=== PATIENT | male | born 1950 | race Caucasian/White ===

== ENCOUNTER 2023-10-26 17:19 | Emergency (ER) | payer MEDICARE, OTHER, SELFPAY ==
[2023-10-26 17:32] VITALS: BP 137/101
[2023-10-26 18:19] LABS: COVID-19 Antigen Negative (Negative)
[2023-10-26 18:27] VITALS: BMI 30.3
[2023-10-26 18:35] VITALS: BP 138/89
--- NOTE | 2023-10-26 20:42 | ED.GENMED ---
History of Present Illness
General
Chief Complaint: Cold/Flu/URI Symptoms
Source: patient
Exam Limitations: none
Time Seen by Provider: 10/26/23 18:36
Nursing documentation reviewed up to this point in time: agreed with
Travel History
Have you had any contact with someone who has COVID-19?: No
Do you have any symptoms of coronavirus? Fever > 100 degrees, chills, cough, shortness of breath, sore throat, loss of taste or smell, muscle aches, or headache?: No
History of Present Illness
History of Present Illness:
73-year-old male with history of A-fib on Eliquis, HTN, HLD, NIDDM presents with 'bad cough.' He feels his lungs are congested, symptoms started 2 days ago, at home with similar symptoms that she has had for 3 weeks. He denies fever or
chills. Denies N/V/D/C. Denies chest pain.
Past History
Past History
ED Past Medical History: Arrthythmia (a FIB), COPD, HTN, Hypercholesterolemia and NIDDM
ED Past Surgical History: Appendectomy and Other (Myxoma removed 2003, Nasal repair age 11)
Social History
Tobacco: Former smoker
Alcohol: Occasional
Personal:
Living: with family
Employment: Employed
Review of Systems
Review of Systems
Allergies reviewed?: Yes
All Other Systems: ROS reviewed and negative except as documented in HPI and ROS
Constitutional: Denies fever or chills
EENT: Denies sore throat
Respiratory: Reports cough; Denies trouble breathing
Cardiac: Denies chest pain
ABD/GI: Denies abdominal pain, nausea, vomiting or diarrhea
Musculoskeletal: Reports no symptoms
Skin: Reports no symptoms
Neurological: Reports no symptoms
Phy Exam
Physical Exam
Physical Exam:
GENERAL: No acute distress. A&Ox3.
CONSTITUTIONAL: Afebrile.
EYES: Clear, conjunctivae normal
ENMT: moist mucus membranes, Pharynx nl
RESPIRATORY: Regular respirations, nonlabored, lungs clear. Occasional coarse junky cough
CARDIOVASCULAR: Regular rate and rhythm, no murmurs, no rubs.
GI: Soft, nontender
MUSCULOSKELETAL: Moves with ease. Well perfused.
SKIN: Warm, dry, pink
PSYCH: Normal mood and affect. Well kept, interactive and appropriate
NEUROLOGIC: Awake, alert and oriented. No focal neurological deficits
Course
Orders/Labs/Results
Orders:
Orders
10/26/23 17:34
ECG [Electrocardiogram (*1)] Urgent
Reason for Study: Chest Pain
10/26/23 17:35
EKG- Treatment ONCE
10/26/23 17:37
COVID-19 Antigen Urgent
Source: Nasal Swab
Influenza A+B Rapid Molecular Urgent
GREGORIA Source: Nasal Swab
Specimen Description:
10/26/23 17:44
Chest [CR Chest - 2 Views ] Urgent
Comment:
Reason For Exam: SOB
10/26/23 20:46
Doxycycline [Vibramycin] 100 mg PO NOW STA
Vital Signs
Initial and Last Documented VS:
Initial Vital Signs
Temp Pulse Resp BP Pulse Ox
98.3 F 93 20 137/101 96
10/26/23 17:32 10/26/23 17:32 10/26/23 17:32 10/26/23 17:32 10/26/23 17:32
Last Documented Vital Signs
Temp Pulse Resp BP Pulse Ox
98.3 F 84 16 153/89 95
10/26/23 17:32 10/26/23 21:05 10/26/23 21:05 10/26/23 21:05 10/26/23 21:05
MDM/Problems Addressed
Differential Diagnosis Includes:
Covid, Flu, PNA, bronchits
MDM/Problems Addressed:
73-year-old male with history of A-fib on Eliquis, HTN, HLD, NIDDM presents with 'bad cough.' He feels his lungs are congested, symptoms started 2 days ago, at home with similar symptoms that she has had for 3 weeks. He denies fever or
chills. Denies N/V/D/C. Denies chest pain.
Afebrile, no hypoxemia, NAD
He has some leftover Augmentin at home and has had a total of 3 doses of 875 mg.
10/26/2023 2044 PM
COVID-negative
Flu negative
Chest x-ray: Radiology for read: Right lower lobe pneumonia.
Prescription for doxycycline sent to patient's pharmacy as well as albuterol inhaler.
Prescription for doxycycline 100 mg twice daily x 10 days sent to his pharmacy.
Pt totally nontoxic appearing, comfortable going home
Copy of EKG and CXR results given to pt.
He has appt tomorrow with his PCP
*Pulse Oximetry
Patient hypoxic: no
*EKG
EKG Intrepretation Date: 10/26/23
Interpretation: abnormal
Comparison EKG: no comparison EKG present
Heart Rate: 84
Rate: normal
Rhythm: sinus
[place]: normal axis
Interval: first degree heart block
QRS Pattern: right bundle branch block (Incomplete)
Ischemia: no ischemia
*Critical Care Note
Total Time (30-74mins, 75-104mins- exclusive of procedures): Not Applicable
ED Attending Note
-
Portions of this chart may have been created with voice recognition software.� Occasional wrong word or��sound alike� substitutions may have occurred due to the inherent limitations of voice recognition software.
Discharge Plan
Departure
Patient Disposition: Home (Routine Discharge)
Date of Disposition: 10/26/23
Time of Disposition: 20:45
Patient with high blood pressure during this ER visit?: No
Condition: Fair
Covid-19: Negative COVID-19
Discharge Problem:
RLL pneumonia
Instructions: Community-Acquired Pneumonia, Adult (DC)
Prescriptions:
New
doxycycline hyclate 100 mg capsule
100 mg PO BID Qty: 19 0RF
albuterol sulfate 90 mcg/actuation HFA aerosol inhaler
2 puff inhalation Q6H PRN (Reason: shortness of breath or wheezing) Qty: 6.7 0RF
No Action
metformin 500 MG tablet
500 mg PO BID
fenofibrate nanocrystallized 145 MG tablet
145 mg PO QPM
omega 4-oft-ejj-fish oil [Fish Oil] 1 EACH capsule
1 ea PO QPM
apixaban [Eliquis] 5 MG tablet
5 mg PO BID
ergocalciferol (vitamin D2) 50 MCG capsule
50 mcg PO QPM
metoprolol succinate 25 MG tablet extended release 24 hr
25 mg PO QPM
Referrals:
Enoch Harley, [Family Provider] - Call in 1-3 days for appt
Activity Restrictions/Additional Instructions:
As we discussed, you have pneumonia. I sent a prescription to your pharmacy for the antibiotic and an albuterol inhaler.
You may take tizy-kxm-mkuudbs cough medicine such as Robitussin, menthol cough drops, drink plenty of fluids
Your COVID and flu tests are negative
Interventions
Interventions:
*Risk Screen - Suicide Last Done: 10/26/23 18:28
*General Assessment Last Done: 10/26/23 18:28
*Neglect/Abuse Screening Last Done: 10/26/23 18:28
ED- Fall Risk Assessment Last Done: 10/26/23 18:28
*ED COVID-19 Vaccine History Last Done: 10/26/23 17:32
*Nursing Disposition Last Done: 10/26/23 21:05
ED- Pulmonary Assessment Last Done: 10/26/23 18:28
Discharge Date and Time
Discharge Date/Time: 10/26/23 21:05
[2023-10-26] MEDS: VIBRAMYCIN 100 MG PO (20:56)
[2023-10-26 21:05] VITALS: BP 153/89
== END 2023-10-26 21:05 | disposition home or self-care (01) ==
LOC: EMR 17:19
PROVIDERS: Emergency Medicine; EMERGENCY PHYSICIAN Emergency Medicine; FAMILY PHYSICIAN Family Medicine
DX: J18.9 Pneumonia, unspecified organism (principal); I10 Essential (primary) hypertension; E78.00 Pure hypercholesterolemia, unspecified; I48.91 Unspecified atrial fibrillation; E11.9 Type 2 diabetes mellitus without complications; Z87.891 Personal history of nicotine dependence; Z11.52 Encounter for screening for COVID-19
CPT/HCPCS: 99285; 71046; 87502; 87811; 93005

== ENCOUNTER 2023-11-07 16:09 | Inpatient (IN) | payer MEDICARE, OTHER, SELFPAY ==
[2023-11-07] VITALS (12 sets, daily range): BP systolic 121–167; BP diastolic 81–105; BMI 29.3
--- NOTE | 2023-11-07 02:44 | ED.GENMED ---
History of Present Illness
General
Chief Complaint: Breathing Problem
Source: patient
Exam Limitations: none
Time Seen by Provider: 11/07/23 02:31
Travel History
Have you had any contact with someone who has COVID-19?: No
Do you have any symptoms of coronavirus? Fever > 100 degrees, chills, cough, shortness of breath, sore throat, loss of taste or smell, muscle aches, or headache?: Yes
Symptoms:: cough
History of Present Illness
History of Present Illness:
This is a 73 year old male that comes in with c/o Pneumonia. State that he was diagnosed here with Pneumonia on Friday the . States that he has done 2 round s antibiotics and 2 rounds of steroids. States that after about 3-4 days they seem to
not work anymore. States that he is SOB with the coughing and going up the steps. States that he has a cough with mucous production. States that he was given Doxycycline first and the Second rounds was Zithromax and Augmentin. States that the
Zithromax ends tomorrow and he is still taking the Augmentin. Patient was also taking a steroid taper at this time. Denies any fever, chills, chest pain, abd pain, nausea, vomiting, diarrhea, headache, dizziness, urinary burning.
Past History
Past History
ED Past Medical History: Arrthythmia (a FIB), COPD, HTN, Hypercholesterolemia, NIDDM and Other (PNA. )
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
Social History
Tobacco: Former smoker
Alcohol: Occasional
Personal:
Living: with family
Employment: Employed
Review of Systems
Review of Systems
All Other Systems: ROS reviewed and negative except as documented in HPI and ROS
Constitutional: Reports no symptoms; Denies fever or chills
EENT: Reports no symptoms
Respiratory: Reports cough and trouble breathing
Cardiac: Reports no symptoms; Denies chest pain
ABD/GI: Reports no symptoms; Denies abdominal pain, nausea, vomiting or diarrhea
: Reports no symptoms; Denies dysuria, frequency or urgency
Musculoskeletal: Reports no symptoms
Skin: Reports no symptoms
Neurological: Reports no symptoms; Denies dizzy or headache
Psychiatric: Reports no symptoms
Phy Exam
General Physical Exam
General Presentation: no apparent distress
General age: appears stated age
General Skin: warm and dry
General Habitus: elderly
General Mental: alert
General Hydration: dry mucous membranes (very slightly dehydrated)
ENT Exam
ENT Exam: TM's normal, pharynx normal and neck supple
Eye Exam
Eye Exam: EOMI
Cardiovascular Exam
Cardiovascular Exam: regular rate/rhythm, no edema and normal peripheral pulses
Pulmonary Exam
Pulmonary Exam: no respiratory distress, chest non tender, no wheezing and other (Bilateral rales at bases, Cough noted with mucous production that patient wrapped in a tissue before seen. )
Gastrointestinal Exam
Gastrointestinal Exam: normal bowel sounds, non tender, soft, no organomegaly, no pulsatile mass and non distended
Musculoskeletal Exam
Musculoskeletal Exam: full ROM and no edema
Skin Exam
Skin Exam: normal color, warm/dry, no petechia and other (Burn on the dorsal aspect of the right foot, Redness noted but negative for any open wounds. Appears improved from prior)
Psychiatric Exam
Psychiatric Exam: normal mood/affect
Scores
Heart Failure Risk
Heart Failure Risk Score: Not Applicable
Course
Orders/Labs/Results
Orders:
Orders
11/07/23 02:43
CR Chest - 2 Views Urgent
Comment:
Reason For Exam: cough, SOB
11/07/23 02:55
Electrocardiogram (*1) Urgent
Reason for Study: Shortness of Breath
EKG- Treatment ONCE
11/07/23 03:15
Complete Blood Count/With Diff Urgent
Comprehensive Metabolic Panel Urgent
Lactic Acid Urgent
Blood Culture Q30M
GREGORIA Source: Blood/Venous
Specimen Description:
Blood Culture Q30M
GREGORIA Source: Blood/Venous
Specimen Description:
11/07/23 03:29
CT Chest Pe Study Urgent
Comment:
Reason For Exam: SOB, Cough
11/07/23 03:39
0.9% Sodium Chloride 1000 ml [Nss] 1,000 ml IV BOLUS
11/07/23 04:39
Admit/Transfer Patient As Directed
Co-Sign Provider:
Level of Care: Observation services
Assign to:: Telemetry
Physician / Group: [email or web address]
Diagnosis: Dyspnea , HX COPD
Reason for Telemetry: Arrhythmia
Date to Stop Telemetry: 11/10/23
Time to Stop Telemetry: 11:00
11/07/23 04:48
NT-proBNP IN AM
Procalcitonin Routine
PCT Algorithmm Indication: Respiratory
11/07/23 04:50
Code Status As Directed
Resuscitation Status: Full Code
11/07/23 Breakfast
Cholesterol Lowering
At Your Request: Full Participation
Cholesterol Lowering: Sodium, 2 Gram
1800 jony/15 CHO Diabetic
11/07/23 07:16
Dextrose 50%-Water [Dextrose 50% Syringe] 12.5 grams IV [id number] PRN
Glucagon [GlucaGen] 1 mg IM PRN PRN
Ipratropium/Albuterol Sulfate [Duoneb] 3 ml INH R Q4HPRN PRN
11/07/23 07:16
Consult Notification Routine
Specialty to Notify: Pulmonary
Date consulting provider notified: 11/07/23
Time consulting provider notified: 07:20
Notified:: Provider
Comment: TT 7:20
Consult Pulmonary [PULMONARY CONSULT] Routine
Consulting Provider: Yair Gar
Was physician already notified: No
Reason for consult: Dyspnea dspite PO steroids+ PO ABx, HX COPD , recent PNA
Activity As Directed
Activity Level: With Assistance
Bedside Glucose Monitoring As Directed
Frequency: AC&HS
Comment: Change to q6h if pt on TPN, tube feeding or not eating
Intake/ Output As Directed
Frequency: Per unit guidelines
Vital Signs As Directed
Frequency: Per unit guidelines
Pulse Ox/spot Check [RESP] Routine
Quantity: 1
DX Deep Vein Thrombosis Video Routine
11/07/23 07:30
Insulin Aspart Corrective Low [Novolog Flexpen-Low Resistance] See Protocol SC AC
11/07/23 07:56
Lactic Acid Urgent
11/07/23 08:00
Apixaban [Eliquis] 5 mg PO BID
Dapagliflozin [Farxiga] 5 mg PO DAILY
Doxycycline [Vibramycin] 100 mg PO BID
Ipratropium/Albuterol Sulfate [Duoneb] 3 ml INH R QID
Prednisone [Deltasone] 40 mg PO DAILY
11/07/23 12:44
0.9% Sodium Chloride [Nss (Preservative Free)] 10 ml IV DAILY
11/07/23 13:00
Pantoprazole [Protonix IV] 40 mg IV DAILY
11/07/23 15:41
HydrALAZINE [Apresoline] 10 mg IV Q6HPRN PRN
11/07/23 18:00
Dexamethasone Sod Phosphate [Decadron] 4 mg IV Q8H
Enoxaparin Sodium [Lovenox] 40 mg SC QPM
Fenofibrate 145 [Tricor] 145 mg PO QPM
Metoprolol Xl [Toprol Xl] 25 mg PO QPM
11/08/23 08:25
Basic Metabolic Panel IN AM
Complete Blood Count/No Diff IN AM
Glycohemoglobin (HgbA1c) IN AM
11/10/23 11:00
DC Protocol for Telemetry ONCE
Abnormal Lab Results
11/07/23 11/07/23 11/07/23
03:15 07:44 12:01
WBC 12.2 H 10^3/uL
(4.8-10.8)
MCH 31.5 H pg
(27.0-31.0)
Abs Immat Gran (auto) 0.2 H 10^3/uL
(0-0.05)
Absolute Neuts (auto) 7.0 H 10^3/uL
(1.4-6.5)
Absolute Lymphs (auto) 4.1 H 10^3/uL
(1.2-3.4)
Absolute Monos (auto) 0.8 H 10^3/uL
(0.1-0.6)
Immature Gran % 1.6 H %
(0-0.5)
BUN 28 H mg/dl
(9-20)
Glucose 180 H mg/dl
(70-99)
Lactic Acid 2.3 H mmol/L
(0.7-2.0)
Calcium 10.3 H mg/dl
(8.4-10.2)
POC Glucose 163 H mg/dl 210 H mg/dl
(70-99) (70-99)
11/07/23 03:15
11/07/23 03:15
Leukocytosis, Dehydration. Glucose nonfasting. Lactic acid elevated to 2.3,
Vital Signs
Initial and Last Documented VS:
Initial Vital Signs
Temp Pulse Resp BP Pulse Ox
97.7 F 93 28 167/105 93
11/07/23 02:01 11/07/23 02:01 11/07/23 02:01 11/07/23 02:01 11/07/23 02:01
Last Documented Vital Signs
Temp Pulse Resp BP Pulse Ox
98.1 F 126 16 146/99 94
11/08/23 15:00 11/08/23 17:00 11/08/23 15:17 11/08/23 17:00 11/08/23 15:17
MDM/Problems Addressed
Differential Diagnosis Includes:
PNA, Atelectasis, CHF
MDM/Problems Addressed:
This is a 73 year old male that comes in with c/o cough and SOB. States that he has been through almost 2 rounds or antibiotics and 2 rounds of steroids. States that for the past 3-4 days there seems to be improvement and then he is back right were
he started. States that he is SOB with the coughing and going up the step.
Will get labs, Chest x-ray
Back into see patient. Explained that his chest x-ray looks improved from the prior where he was diagnosed with Pneumonia. Got patient OOB and ambulated him around the nursing station. Pulse ox remained at 93% and patient heart rate when he got back
into bed was only 83. Patient will get CT can to r/o any PE or hidden Pneumonia that is not seen on X-ray.
Back into see patient. Will bring patient into the hospital as SOB with exertion. Patient also has a slight elevation of his Lactic acid. Will give IV fluids. CT is pending. Hospitalist notified.
Chronic conditions affecting care: COPD and Other (History of PNA)
Acute Exacerbation and/or Progression of Chronic Illness: Other (History of PNA)
*Radiology
Radiology exam reviewed: radiology read reviewed (Chest CT-No evidence of central pulmonary embolism. Pattern suggesting some centrilobular emphysema. Approximate 1.9cm nodular opacity in the left lower lobe. Although this may represent some focal
atelectasis or inflammation/infectious process, unfortunately, malignancy cannot be entirely excluded.) and other (CT cont- referral made to the pulmonary nodule advisory board. Chest- No acute cardiopulmonary process)
*Pulse Oximetry
Patient hypoxic: no
*EKG
Interpreted by ED Provider?: Yes
Heart Rate: 84
Rate: normal
Rhythm: sinus
[place]: normal axis
Interval: first degree heart block
QRS Pattern: right bundle branch block (Incomplete)
Ischemia: no ischemia
*House Steward/Stewardess Interpretation
Rate: normal
Heart Rate: 84
Rhythm: sinus
*Critical Care Note
Total Time (30-74mins, 75-104mins- exclusive of procedures): Not Applicable
ED Attending Note
-
Portions of this chart may have been created with voice recognition software.� Occasional wrong word or��sound alike� substitutions may have occurred due to the inherent limitations of voice recognition software.
Discharge Plan
Departure
Patient Disposition: Admit
Date of Disposition: 11/07/23
Time of Disposition: 04:15
Admit to: Med/Surg
Presentation/result/management discussed w/ accepting MD/DO: Hospitalist
Patient with high blood pressure during this ER visit?: Yes
Condition: Good
Covid-19: Not Applicable
Discharge Problem:
FLORES (dyspnea on exertion), Cough in adult
Interventions
Interventions:
*Risk Screen - Suicide Last Done: 11/07/23 02:01
*General Assessment Last Done: 11/07/23 02:01
*Neglect/Abuse Screening Last Done: 11/07/23 02:01
ED- Fall Risk Assessment Last Done: 11/07/23 02:01
*ED COVID-19 Vaccine History Last Done: 11/07/23 02:01
*Nursing Disposition Last Done: 11/07/23 07:21
ED- Cardiac Assessment Last Done: 11/07/23 04:30
ED- Pulmonary Assessment Last Done: 11/07/23 04:28
Discharge Date and Time
Discharge Date/Time: 11/07/23 07:21
[2023-11-07 03:29] LABS: % Basophils 0.7 % (0-2); % Eosinophils 1.3 % (0-6); % Immature Granulocytes 1.6 % (0-0.5); % Lymphocytes 33.4 % (20.5-51.1); % Monocytes 6.3 % (1.7-9.3); % Neutrophils 56.7 % (42.2-75.2); Absolute Basophils 0.1 10^3/uL (0-0.2); Absolute Eosinophils 0.2 10^3/uL (0-0.7); Absolute Immature Granulocytes 0.2 10^3/uL (0-0.05); Absolute Lymphocytes 4.1 10^3/uL (1.2-3.4); Absolute Monocytes 0.8 10^3/uL (0.1-0.6); Hematocrit 44.2 % (39.0-52.0); Hemoglobin 16.2 g/dL (13.0-18.0); Mean Corp Hgb Conc. 36.7 g/dL (33.0-37.0); Mean Corpuscular Hgb 31.5 pg (27.0-31.0); Mean Corpuscular Volume 85.8 fL (80.0-94.0); Mean Platelet Volume 9.7 fL (7.4-10.4); Nucleated Red Blood Cells % 0 % (-); Platelet Count 285 10^3/uL (130-400); Red Blood Cell Count 5.15 10^6/uL (4.70-6.10); Red Cell Dist. Width 12.1 % (11.5-14.5); White Blood Cell Count 12.2 10^3/uL (4.8-10.8)
[2023-11-07 03:37] LABS: Lactic Acid 2.3 mmol/L (0.7-2.0)
[2023-11-07 03:48] LABS: ALT (SGPT) 35 U/L (0-50); AST (SGOT) 29 U/L (17-59); Alkaline Phosphatase 85 U/L (38-126); Blood Urea Nitrogen 28 mg/dl (9-20); Calcium 10.3 mg/dl (8.4-10.2); Carbon Dioxide 23 mmol/L (22-30); Chloride 101 mmol/L (98-107); Glucose 180 mg/dl (70-99); Sodium 136 mmol/L (135-145); Total Bilirubin 0.6 mg/dl (0.2-1.3); Total Protein 6.7 g/dl (6.3-8.2); eGFR > 60.00
--- NOTE | 2023-11-07 04:35 | HPS.HSE ---
Addendum entered and electronically signed by Bob Deutsch MD 11/07/23 13:30:
Final CXR report : no acute process
Addendum entered and electronically signed by Bob Deutsch MD 11/07/23 05:19:
CTA chest with IV contrast
- No pulmonary embolus. Examination degraded by moderate motion artifact and streak artifact of the contrast bolus. Adequate bolus timing.
- No thoracic aneurysm or dissection.
- Peripheral 1.9 x 1.8 cm nodular opacity in the left lower lobe. Cannot exclude a mass. Alternatively, this may represent a small infection or atelectasis.
May consider biopsy or follow-up chest CT in 3 months.
- Right lower lobe dependent groundglass opacities. Moderate centrilobular emphysema.
- Mediastinal and cardiac structures are unremarkable. Visualized portions of the upper abdomen are unremarkable.
Plan
- await Pul evaluation
- await procalcitonin and pro BNP
Original Note:
Family Physician
-
Family Physician: Enoch Harley
Chief Complaint
-
Sob , cough
History of Present Illness
73M HX COPD, NIDDM , recently was diagnosed Rt LLL PNA (10/29/22 CXR) treated with 2 round s antibiotics and 2 rounds of steroids. Despite ABx and steroids noted SOB with the coughing and going up the steps. Recent HX ABx include Doxycycline
first and the Second rounds was Zithromax and Augmentin. Zithromax ends tomorrow and he is still taking the Augmentin. Currently on tapering dose of steroid.
ROS:
POS cough with mucous production.
Denies any fever, chills, chest pain, abd pain, nausea, vomiting, diarrhea, headache, dizziness, urinary burning.
Medical History
Past Medical History
Past Medical History: Reports Other
Additional Past Medical History:
Arrthythmia (a FIB), COPD, HTN, Hypercholesterolemia, NIDDM and Other (PNA. )
Past Surgical History: Reports Other
Additional Past Surgical History:
Appendectomy and Other (Myxoma removed from Heart Open heart surgery 2004, Nasal repair age 11
Social History
Tobacco: Former Smoker
Alcohol: Occasional
Personal:
Living: With Family
Family History
Family History: Not pertinent
Allergies / Home Medications
Allergies reflects when Allergies were last updated in [email or web address].
Home Medications with original date entered in [email or web address]
Allergy/Medication List:
Allergies
Allergy/AdvReac Type Severity Reaction Status Date / Time
bee venom protein (honey bee) Allergy Severe TACHYCARDIA Verified 11/07/23 02:00
oxycodone [From Percocet] Allergy Mild 'LOOPY' Verified 11/07/23 02:00
ezetimibe [From Zetia] Allergy Pharmacy Verified 11/07/23 02:00
to Review
[id number]-[id number] Reductase Allergy myalgias Verified 11/07/23 02:00
Inhibitor
Home Medications
apixaban 5 mg tablet (Eliquis) 5 mg PO BID 01/14/22
ergocalciferol (vitamin D2) 50 mcg (2,000 unit) capsule 50 mcg PO QPM 01/14/22
fenofibrate nanocrystallized 145 mg tablet 145 mg PO QPM 01/14/22
metformin 500 mg tablet 500 mg PO BID 01/14/22
metoprolol succinate 25 mg tablet,extended release 24 hr 25 mg PO QPM 01/14/22
omega 3-odj-gvu-fish oil 300 mg-1,000 mg capsule (Fish Oil) 1 ea PO QPM 01/14/22
albuterol sulfate 90 mcg/actuation aerosol inhaler 2 puff inhalation Q6H PRN shortness of breath or wheezing #6.7 grams 10/26/23
doxycycline hyclate 100 mg capsule 100 mg PO BID #19 caps 10/26/23
Farxiga 5 mg PO DAILY 11/07/23
amoxicillin 875 mg PO BID 11/07/23
prednisone 40 mg PO DAILY 11/07/23
Review of Systems
-
Constitutional: Reports No Symptoms
EENT: Reports No Symptoms
Respiratory: Reports See HPI
Cardiac: Reports No Symptoms
Abdomen/GI: Reports No Symptoms
: Reports No Symptoms
Musculoskeletal: Reports No Symptoms
Skin: Reports No Symptoms
Neurological: Reports No Symptoms
Endocrine: Reports No Symptoms
Hematologic/Lymphatic: Reports No Symptoms
Psych: Reports No Symptoms
Physical Exam
Vital Signs
Vital Signs
Temp Pulse Resp BP Pulse Ox
97.7 F 93 28 167/105 94
11/07/23 02:01 11/07/23 02:01 11/07/23 02:01 11/07/23 02:01 11/07/23 04:28
Physical Exam
General: Other (see below )
Laboratory Results
-
11/07/23 03:15
11/07/23 03:15
Laboratory Results
Lactic Acid 2.3 mmol/L (0.7-2.0) H 11/07/23 03:15
Total Bilirubin 0.6 mg/dl (0.2-1.3) 11/07/23 03:15
AST 29 U/L (17-59) 11/07/23 03:15
ALT 35 U/L (0-50) 11/07/23 03:15
Alkaline Phosphatase 85 U/L (38-126) 11/07/23 03:15
Data Reviewed
-
CT Scan: Other (pending report )
Lab Data: Labs Reviewed by me
Old Records: Reviewed
Impression/Plan
-
Reviewed VS: Afebrile.Tachpnic @20-28. POx 93 on RA. BP 165/105
PE
Gen: NAD
HEENT: anicteric
Neck: supple
Lungs: cough with deep breathing, symmetric AE
Cor: RRR S1 S2
Abdomen: soft benign
ENTERTAINMENT PRODUCTION PROFESSIONAL: AAO3 NFND
MS: no edema
Psych: normal mood/affect
Data
WCC 12.2 on Prednisone
BUN 28
nl Cr nl GFR
BG 180 on prednisone
LA 2.3
Ca 10.3 Alb 4.0
nl LFts
EKG
SINUS RHYTHM WITH 1ST DEGREE A-V BLOCK
INCOMPLETE RIGHT BUNDLE BRANCH BLOCK
BORDERLINE ECG
WHEN COMPARED WITH ECG OF 26-OCT-2023 17:41,
NONSPECIFIC T WAVE ABNORMALITY NO LONGER EVIDENT IN INFERIOR LEADS
BCx sent
10/26/23 CXR
1. Multiple bands of opacity in the right lower lobe which appear new from 09/15/2023 suggesting RIGHT LOWER LOBE PNEUMONIA. Subsegmental atelectasis is an alternative diagnostic possibility.
2. Previous cardiac myxoma resection.
11/06/23 CXR - my view is no obvious PNA , not in CHF
Pending CT chest report
ASSESSMENT & PLAN
No prior hospitalist admission
Pending Rx reconciliation
Webb and productive cough
HX COPD
Rt LLL PNA per 10/26/23 CXR - no obvious PNA on my view on current admission CXR
Clinically not volume overload
- f/u CTC report
- cont PO Doxy
- cont PO Prednisone 40mg daily
- Nebs qid and PRN
- check procalcitonin and proBNP
- Pul consult
In NSR for known HX Prx AF
- cont Eliquis and Metoprolol succinate
Mild systolic HTN noted
Essential HTN
- cont Metoprolol succinate
Hypercholesterolemia
- await Rx reconciliation
NIDDM
- Held Metformin
- add ISS low
DVT Px: LMWH
Code: Full
Obs TLM
[2023-11-07] MEDS: NSS 1000 IV (04:39)
[2023-11-07 05:34] LABS: NT-proBNP 291 pg/ml
[2023-11-07 05:46] LABS: Procalcitonin 0.06 ng/ml (0.0-0.25)
[2023-11-07] MEDS: DUONEB 3 ML INH ×4 (07:22→20:21)
--- NOTE | 2023-11-07 07:40 | PTCARENOTE ---
Rec'd Pt from ED to room 417-2, [address]. Pt is AOOX3, oriented to room with call herbert in place.
[2023-11-07 07:45] LABS: Glucose - Point of Care 163 mg/dl (70-99)
--- NOTE | 2023-11-07 08:29 | CON.PUL ---
Consultation
Consultation Request
Date/Time Consultation Requested: 11/07/2023
Date/Time Consultation Performed: 11/07/2023
Reason for Consultation: Shortness of breath
Medical History
-
History of Present Illness:
History obtained from the chart and from reviewing case with the patient. Patient is a 73-year-old male with history of COPD who was recently discharged from [facility] 10/26/2023 treated for right lower lobe pneumonia. He was seen in the
ED, not hospitalized. He states his symptoms started about 10 days ago. His primary consisted of upper respiratory symptoms. He denies any hemoptysis. He apparently has had recurrent bronchitis, a similar episode about 3 weeks prior. In the ED
at that time, he was given doxycycline, of note no wheezing noted on exam. Chest x-ray suggested right lower lobe pneumonia. He followed up with his primary thereafter and was placed on a different antibiotic and steroid with 40 mg due to
persistent symptoms. Because of persistent symptoms, he brought himself to [facility] where he was found to be afebrile, pulse 93, breathing at 28, blood pressure 167/105, 93%. Chest x-ray suggested improvement in right lower lobe
pneumonia but patient desaturated to 83% in the ED with simple ambulation. He had mild elevated lactic acid. Per ED records there was no wheezing but he did have crackles. We are asked to comment on his pulmonary process
Presently he is feeling mildly improved but does have productive cough, coughing up 6 teaspoons of yellow mucus, no blood. He is conversant, no use of accessory muscles
.
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 History of right bundle branch block, appendectomy 1980
Past Medical History
Past Medical History: None (See HPI)
Past Surgical History: None (See HPI)
Social History
Tobacco: Former Smoker (Likely 40+ pack year, up to 2 packs a day, quit )
Alcohol: Occasional
Drug: None
Personal:
Living: With Family
Employment: Retired (Denies occupational exposure)
Family History
Family History: Other (Mother from stroke 87, father in his 90s. Family history negative for blood clots)
Allergies / Home Medications
Allergies
Allergy/AdvReac Type Severity Reaction Status Date / Time
bee venom protein (honey bee) Allergy Severe TACHYCARDIA Verified 11/07/23 02:00
oxycodone [From Percocet] Allergy Mild 'LOOPY' Verified 11/07/23 02:00
ezetimibe [From Zetia] Allergy Pharmacy Verified 11/07/23 02:00
to Review
Hbevtfe-OWD-OjB Reductase Allergy myalgias Verified 11/07/23 02:00
Inhibitor
Home Medications
Medication Instructions Recorded Confirmed Last Taken Type
apixaban 5 mg tablet (Eliquis) 5 mg PO BID 01/14/22 11/07/23 11/06/23 History
ergocalciferol (vitamin D2) 50 mcg 50 mcg PO QPM 01/14/22 11/07/23 11/06/23 History
(2,000 unit) capsule
fenofibrate nanocrystallized 145 145 mg PO QPM 01/14/22 11/07/23 11/06/23 History
mg tablet
metformin 500 mg tablet 500 mg PO BID 01/14/22 11/07/23 11/06/23 History
metoprolol succinate 25 mg 25 mg PO QPM 01/14/22 11/07/23 11/06/23 History
tablet,extended release 24 hr
omega 1-wle-nsv-fish oil 300 1 ea PO QPM 01/14/22 11/07/23 11/06/23 History
mg-1,000 mg capsule (Fish Oil)
albuterol sulfate 90 mcg/actuation 2 puff inhalation Q6H PRN 10/26/23 11/07/23 Unknown Rx
aerosol inhaler shortness of breath or wheezing
#6.7 grams
doxycycline hyclate 100 mg capsule 100 mg PO BID #19 caps 10/26/23 11/07/23 Unknown Rx
Farxiga 5 mg PO DAILY 11/07/23 11/07/23 11/06/23 History
amoxicillin 875 mg PO BID 11/07/23 11/07/23 11/06/23 History
prednisone 40 mg PO DAILY 11/07/23 11/07/23 11/06/23 History
Review of Systems
-
All other systems: Negative unless noted
Vitals / Labs / Diagnostic Testing
Vital Signs
Temp Pulse Resp BP Pulse Ox
97.7 F 63 18 121/83 95
11/07/23 02:01 11/07/23 07:27 11/07/23 07:27 11/07/23 06:00 11/07/23 07:27
Lab Data
11/07/23 03:15
11/07/23 03:15
Diagnostic Testing:
Physical Exam
-
HEENT: Normocephalic and Anicteric
Cardiovascular: S1/S2, Regular Rhythm, Murmur (n), Rub (n), Peripheral Edema (tr) and Calf Tenderness (n)
Respiratory: Wheeze (Diffuse), Rales (n), Rhonchi (n) and Non-Labored Respirations
GI: Soft, Non Distended (Obese) and Non Tender
Neurology: Awake, Alert and No Motor Deficits
Skin: Other (No clubbing, cyanosis)
General: Comfortable (Conversant)
Assessment
-
73-year-old male with history of hypertension, hyperlipidemia, atrial fibrillation on anticoagulation, diabetes presents with 8 to 10 days of upper respiratory symptoms status post doxycycline, steroids and second antibiotic with persistent
symptoms. Found to have significant wheezing on my exam. CT imaging negative for PE, improvement in right lower lobe process. There is a left lower lobe nodule. We are asked to comment on pulmonary process
Acute COPD exacerbation
Diffuse wheezing on exam
Failed outpatient therapy with antibiotic x 2, prednisone
Recent right lower lobe pneumonia, status post 2 courses of antibiotics
Improved radiographically
1.8 cm left lower lobe nodule
not present on abdominal CT imaging 02/06/2023
40+ pack years to smoking
2 packs a day, quit
Conditions present prior to admission
Hypertension/hyperlipidemia
Diabetes
History of right bundle branch block
Atrial fibrillation on Eliquis
History of atrial myxoma
Cardiac surgery 2003, details unclear
Suspected sleep apnea
Negative PSG per patient
Plan/recommendations
At this time, salient features include diffuse wheezing on exam. Prior ED records suggest no evidence of wheezing
It appears his prior right lower lobe process has improved
Doubt active infection, procalcitonin normal
Doubt component of heart failure, normal BNP, weight down few pounds over the last week
Moving forward
Continue with treatment for acute COPD exacerbation
With transition to IV steroids, Decadron. Patient has failed outpatient prednisone
Ramp-up nebulized therapy, continue DuoNebs 4 times a day
Patient with significant productive cough, 6 teaspoons of thick mucus, visualized at bedside
Add budesonide twice daily
GERD therapy will be added while on steroids
Follow blood sugars
Less likely thromboembolic process given chronic anticoagulation
Reviewed with patient at length left lower lobe nodule. This was not present on abdominal imaging February 2023
Rapid growth versus infectious process
He will require follow-up CT chest in the next 4 weeks. We will facilitate this
DVT prophylaxis: On Eliquis
Reviewed with patient at length. All questions answered
We will follow
--- NOTE | 2023-11-07 08:42 | W.PN.HOSP.TC ---
Addendum entered and electronically signed by Hakeem Horne MD 11/07/23 16:09:
Due to patient persistent and severity COPD exacerbation as well as failed outpatient treatment, his medications have been switched to intravenous steroids and he will require minimum of 2 midnights and he needs to be carried to hospital for further
care and monitor for any worsening respiratory failure or progress.
Original Note:
Today's Communication/Plan
-
IV steroids, bronchodilators.
Assessment / Plan
Assessment / Plan
Physical exam:
General: Well Developed, Well Nourished and No Apparent Distress
HEENT: Normocephalic, Atraumatic and Moist Mucous Membranes
Respiratory: Clear to Auscultation; Negative Wheezes, Rales or Rhonchi
Cardiac: Regular Rhythm and S1/S2
GI: Soft, Nontender and Nondistended
Musculoskeletal: No Clubbing, No Cyanosis and No Edema
Neuro: Awake, Alert and Oriented
Psych: Calm
A/P:
COPD exacerbation:
-Change oral steroids to IV steroids today
-Continue bronchodilators but increased.
-On oral doxycycline
-Seen and reviewed CT of the chest and no PE, but evidence of centrilobular emphysema and 1.9 cm opacity left lower lobe.
-Pulmonary consult appreciated
Lung mass:
-Pulmonary consult
-Follow-up as outpatient--> will need follow-up images as outpatient.
Paroxysmal atrial fibrillation:
-Continue rate control, Metoprolol succinate 25 mg p.o. nightly
-Continue anticoagulation, Eliquis 5 mg p.o. twice a day
-Continue cardiac monitoring
Hypertension:
-Continue current antihypertensive
-Monitor and adjust blood pressure medications accordingly
Diabetes mellitus type 2:
-Continue Farxiga
-Continue insulin sliding scale
-Monitor blood sugar and adjust medications accordingly
DVT prophylaxis:
-On Eliquis
-Discontinue Lovenox
CODE STATUS:
-Full code
Anticipated Discharge: > 48 hours
Subjective/Interval History
-
Date of Service: November 07, 2023
Patient still short of breath and cough. No chest pain. Afebrile
Objective Data
-
Labs:
Laboratory Results
11/07/23
03:15
WBC 12.2 H
Hgb 16.2
Hct 44.2
Plt Count 285
Sodium 136
Potassium 4.0
Chloride 101
Carbon Dioxide 23
BUN 28 H
Creatinine 0.8
Glucose 180 H
Calcium 10.3 H
Total Bilirubin 0.6
AST 29
ALT 35
Alkaline Phosphatase 85
Vital Signs:
Vital Signs
Temp Pulse Resp BP Pulse Ox
97.9 F 84 18 150/81 94
11/07/23 07:30 11/07/23 07:30 11/07/23 07:30 11/07/23 07:30 11/07/23 07:30
[2023-11-07] MEDS: NOVOLOG FLEXPEN-LOW RESISTANCE 1 UNITS SC (09:40)
[2023-11-07] MEDS: ELIQUIS 5 MG PO ×2 (09:40→19:56)
[2023-11-07] MEDS: VIBRAMYCIN 100 MG PO ×2 (09:40→19:57)
[2023-11-07] MEDS: FARXIGA 5 MG PO (09:41)
[2023-11-07] MEDS: DELTASONE 40 MG PO (09:41)
--- NOTE | 2023-11-07 11:05 | CM ---
Patient seen bedside, initial assessment completed. Patient reports he lives with his in a multiple story home, denies DME, VN, or SNF. Patient confirms PCP Dr. Harley, pharmacy [facility]. ROGERS form reviewed, signed, placed in patients
chart. CM will continue to follow for discharge planning needs.
Plan; home, will follow for anticipated needs.
[2023-11-07] MEDS: NOVOLOG FLEXPEN-LOW RESISTANCE SC (11:52)
[2023-11-07 12:01] LABS: Glucose - Point of Care 210 mg/dl (70-99)
[2023-11-07] MEDS: NOVOLOG FLEXPEN-LOW RESISTANCE 2 UNITS SC ×2 (12:47→17:25)
[2023-11-07] MEDS: NSS (PRESERVATIVE FREE) 10 ML IV (12:47)
[2023-11-07] MEDS: PROTONIX IV 40 MG IV (12:48)
[2023-11-07 17:16] LABS: Glucose - Point of Care 211 mg/dl (70-99)
[2023-11-07] MEDS: DECADRON 4 MG IV (17:24)
[2023-11-07] MEDS: TOPROL XL 25 MG PO (17:25)
[2023-11-07] MEDS: TRICOR 145 MG PO (17:26)
[2023-11-07] MEDS: APRESOLINE 10 MG IV (17:26)
--- NOTE | 2023-11-07 18:32 | PTCARENOTE ---
Pt BP elevated @ 144/100 HR 107. No PRN's ordered. TT to DR. Horne- N/O rec'd for PRN Hydralazine (for SBP>160/DBP>100). Given to Pt. BP dropped just 1 point to 144/99, HR 104. Will re-check @ 1900 vitals and pass along to HS RN.
[2023-11-07 23:42] LABS: Glucose - Point of Care 195 mg/dl (70-99)
[2023-11-08] MEDS: DECADRON 4 MG IV ×3 (01:56→17:00)
[2023-11-08 03:15] VITALS: BP 136/98
[2023-11-08 07:00] VITALS: BP 134/90
[2023-11-08] MEDS: DUONEB 3 ML INH ×4 (07:24→19:42)
[2023-11-08 07:50] LABS: Glucose - Point of Care 206 mg/dl (70-99)
[2023-11-08] MEDS: NOVOLOG FLEXPEN-LOW RESISTANCE 2 UNITS SC ×2 (07:53→11:48)
[2023-11-08] MEDS: NSS (PRESERVATIVE FREE) 10 ML IV (07:53)
[2023-11-08] MEDS: ELIQUIS 5 MG PO ×2 (07:53→19:34)
[2023-11-08] MEDS: VIBRAMYCIN 100 MG PO ×2 (07:53→19:34)
[2023-11-08] MEDS: PROTONIX IV 40 MG IV (07:53)
[2023-11-08] MEDS: FARXIGA 5 MG PO (07:53)
--- NOTE | 2023-11-08 07:55 | W.PN.HOSP.TC ---
Today's Communication/Plan
-
Continue IV steroids, bronchodilators.
Assessment / Plan
Assessment / Plan
Physical exam:
General: Well Developed, Well Nourished and No Apparent Distress
HEENT: Normocephalic, Atraumatic and Moist Mucous Membranes
Respiratory: Clear to Auscultation; Negative Wheezes, Rales or Rhonchi
Cardiac: Regular Rhythm and S1/S2
GI: Soft, Nontender and Nondistended
Musculoskeletal: No Clubbing, No Cyanosis and No Edema
Neuro: Awake, Alert and Oriented
Psych: Calm
A/P:
COPD exacerbation:
-Change oral steroids to IV steroids yesterday and cont the same today
-Continue bronchodilators but increased yesterday.
-On oral doxycycline
-Seen and reviewed CT of the chest and no PE, but evidence of centrilobular emphysema and 1.9 cm opacity left lower lobe.
-Pulmonary consult appreciated
-Updated over the phone today
Lung mass:
-Pulmonary consult appreciated
- tells me that he has had low-dose CT scan screening as outpatient about 5 times but she does recall anything major although she was told 1 nodule that was probably benign. Regardless, at this point will need to follow-up closely with his 2 cm
nodule after this hospitalization.
-Follow-up as outpatient--> will need follow-up images as outpatient.
Paroxysmal atrial fibrillation:
-Continue rate control, Metoprolol succinate 25 mg p.o. nightly
-Continue anticoagulation, Eliquis 5 mg p.o. twice a day
-Continue cardiac monitoring
Hypertension:
-Continue current antihypertensive
-Monitor and adjust blood pressure medications accordingly
Diabetes mellitus type 2:
-Continue Farxiga
-Continue insulin sliding scale
-Monitor blood sugar and adjust medications accordingly
DVT prophylaxis:
-On Eliquis
-Discontinue Lovenox
CODE STATUS:
-Full code
Anticipated Discharge: > 48 hours
Subjective/Interval History
-
Date of Service: November 08, 2023
Patient feels better today, less shortness of breath and cough. No chest pain. Afebrile
Objective Data
-
Labs:
Laboratory Results
11/08/23
06:00
WBC Pending
Hgb Pending
Hct Pending
Plt Count Pending
Sodium Pending
Potassium Pending
Chloride Pending
Carbon Dioxide Pending
BUN Pending
Creatinine Pending
Glucose Pending
Calcium Pending
Vital Signs:
Vital Signs
Temp Pulse Resp BP Pulse Ox
97.4 F 89 16 136/98 95
11/08/23 03:15 11/08/23 07:26 11/08/23 07:26 11/08/23 03:15 11/08/23 07:26
I&O
11/07/23 11/08/23 11/09/23
06:59 06:59 06:59
Intake Total 1200 / 1200
Balance 1200 / 1200
Review of Systems
-
All other systems: Reviewed and negative
[2023-11-08 09:08] LABS: Hematocrit 46.9 % (39.0-52.0); Hemoglobin 16.6 g/dL (13.0-18.0); Mean Corp Hgb Conc. 35.4 g/dL (33.0-37.0); Mean Corpuscular Hgb 31.6 pg (27.0-31.0); Mean Corpuscular Volume 89.2 fL (80.0-94.0); Mean Platelet Volume 10.1 fL (7.4-10.4); Platelet Count 281 10^3/uL (130-400); Red Blood Cell Count 5.26 10^6/uL (4.70-6.10); Red Cell Dist. Width 12.3 % (11.5-14.5)
[2023-11-08 09:15] VITALS: BP 134/90
[2023-11-08 09:26] LABS: Blood Urea Nitrogen 20 mg/dl (9-20); Calcium 9.6 mg/dl (8.4-10.2); Carbon Dioxide 20 mmol/L (22-30); Chloride 100 mmol/L (98-107); Estimated Creatinine Clearance 102 ml/min; Glucose 284 mg/dl (70-99); Potassium 4.3 mmol/L (3.5-5.1); Sodium 133 mmol/L (135-145); eGFR > 60.00
[2023-11-08 11:03] LABS: Glycohemoglobin (HgbA1c) 8.9 % (4.0-5.6)
[2023-11-08 11:47] LABS: Glucose - Point of Care 235 mg/dl (70-99)
[2023-11-08 15:00] VITALS: BP 149/84
--- NOTE | 2023-11-08 16:37 | W.PN.PUL3 ---
Today's Communication / Plan
-
Bronchodilators
Corticosteroids
Oral antibiotic
Chronic anticoagulation
Assessment
-
73-year-old male with history of hypertension, hyperlipidemia, atrial fibrillation on anticoagulation, diabetes presents with 8 to 10 days of upper respiratory symptoms status post doxycycline, steroids and second antibiotic with persistent
symptoms. Found to have significant wheezing on my exam. CT imaging negative for PE, improvement in right lower lobe process. There is a left lower lobe nodule. We are asked to comment on pulmonary process
Acute COPD exacerbation
Diffuse wheezing on exam
Failed outpatient therapy with antibiotic x 2, prednisone
Recent right lower lobe pneumonia, status post 2 courses of antibiotics
Improved radiographically
1.8 cm left lower lobe nodule
not present on abdominal CT imaging 02/06/2023
40+ pack years to smoking
2 packs a day, quit
Conditions present prior to admission
Hypertension/hyperlipidemia
Diabetes
History of right bundle branch block
Atrial fibrillation on Eliquis
History of atrial myxoma
Cardiac surgery 2003, details unclear
Suspected sleep apnea
Negative PSG per patient
Plan/recommendations
Reports significant respiratory improvement today, no dyspnea at rest, improved dyspnea on exertion, cough improving as well
It appears his prior right lower lobe process has improved
Doubt active infection, procalcitonin normal
Doubt component of heart failure, normal BNP, weight down few pounds over the last week
Continue with treatment for acute COPD exacerbation
Transitioned to IV steroids, Decadron, continue today, reevaluate tomorrow, if improvement continues, could change to prednisone with a slow taper, starting at 40 mg/day and decreasing dose by 10 mg every 4 days to off. Of note, patient has failed
outpatient prednisone
Ramped-up nebulized therapy, continue DuoNebs 4 times a day for today, reevaluate tomorrow, can decrease to as needed if significant improvement continues
Patient with significant productive cough, 6 teaspoons of thick mucus, visualized at bedside 11-07, improved today according to patient's report
Added budesonide twice daily, continue
GERD therapy will be added while on steroids
Follow blood sugars
Less likely thromboembolic process given chronic anticoagulation for A-fib (apixaban)
Reviewed with patient at length left lower lobe nodule. This was not present on abdominal imaging February 2023
Rapid growth versus infectious process
He will require follow-up CT chest in the next 4 weeks. Follow-up with Dr. Werner, otr truck driver at [place], he is welcome to continue with him or follow with our practice upon discharge, per his report he might return to [place], instructed to
obtain CT films with his chest CT for comparison
DVT prophylaxis: On Eliquis
Reviewed with patient at length. All questions answered
Subjective Data
-
Date of Service:
Date of Service: November 08, 2023
Chief Complaint: Pulmonary Follow Up
Subjective:
Denies major complaints
States that he feels much better respiratory ash today
No dyspnea at rest and mild dyspnea on exertion, cough resolving
Follows with Dr. Werner, otr truck driver in [place]
Review of Systems
General: Fever (n), Sweats, Chills (n) and Satisfactory Appetite
HEENT: Epistaxis (n) and Dysphagia
Cardiopulmonary: Dyspnea on Exertion, Cough and Edema (n)
GI: Abdominal Pain (n), Nausea and Vomiting (n)
Objective Data
Data Reviewed
Vital Signs / I&O / Oxygen:
Vital Signs
Temp Pulse Resp BP Pulse Ox
98.1 F 97 16 149/84 94
11/08/23 15:00 11/08/23 15:17 11/08/23 15:17 11/08/23 15:00 11/08/23 15:17
Intake and Output
11/07/23 11/08/23 11/09/23
06:59 06:59 06:59
Intake Total 1200 / 1200
Balance 1200 / 1200
SaO2 94
Physical Exam
General: Comfortable
HEENT: Normocephalic and Moist Mucous Membranes
Cardiovascular: Regular Rhythm, Murmur, Peripheral Edema (n) and Calf Tenderness (n)
Respiratory: Wheeze (n), Rhonchi and Non-Labored Respirations
GI: Soft, Non Distended and Non Tender
Neurology: Awake, AO x 3 and No Motor Deficits
Skin: Dry
Labs/Micro/Reports
Lab Data
11/08/23 08:25
11/08/23 08:25
Microbiology
11/07/23 03:15 Blood/Venous Blood Culture - Preliminary
No Growth in 24 hours- Final report to follow
11/07/23 03:15 Blood/Venous Blood Culture - Preliminary
No Growth in 24 hours- Final report to follow
[2023-11-08] MEDS: TRICOR 145 MG PO ×2 (16:57→17:00)
[2023-11-08 16:59] LABS: Glucose - Point of Care 285 mg/dl (70-99)
[2023-11-08] MEDS: NOVOLOG FLEXPEN-LOW RESISTANCE 3 UNITS SC (16:59)
[2023-11-08] MEDS: TOPROL XL 25 MG PO (17:00)
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
[2023-11-08 21:42] LABS: Glucose - Point of Care 260 mg/dl (70-99)
[2023-11-08 23:35] VITALS: BP 145/91
[2023-11-09] MEDS: DECADRON 4 MG IV (01:39)
[2023-11-09 07:00] VITALS: BP 134/97
[2023-11-09 07:29] LABS: Glucose - Point of Care 198 mg/dl (70-99)
[2023-11-09] MEDS: NOVOLOG FLEXPEN-LOW RESISTANCE 1 UNITS SC (07:48)
[2023-11-09] MEDS: NSS (PRESERVATIVE FREE) 10 ML IV (07:49)
[2023-11-09] MEDS: VIBRAMYCIN 100 MG PO ×2 (07:49→20:50)
[2023-11-09] MEDS: ELIQUIS 5 MG PO ×2 (07:49→20:49)
[2023-11-09] MEDS: FARXIGA 5 MG PO (07:49)
[2023-11-09] MEDS: PROTONIX IV 40 MG IV (07:50)
[2023-11-09] MEDS: DUONEB 3 ML INH (08:13)
[2023-11-09 08:19] LABS: Blood Urea Nitrogen 25 mg/dl (9-20); Calcium 10.1 mg/dl (8.4-10.2); Carbon Dioxide 24 mmol/L (22-30); Chloride 100 mmol/L (98-107); Estimated Creatinine Clearance 89 ml/min; Glucose 219 mg/dl (70-99); Sodium 136 mmol/L (135-145); eGFR > 60.00
--- NOTE | 2023-11-09 08:37 | W.PN.HOSP.TC ---
Today's Communication/Plan
-
Change steroids to oral, change bronchodilators to as needed, cardiology consult for hypertension and A-fib evaluation. Discharge planning in progress.
Assessment / Plan
Assessment / Plan
Physical exam:
General: Well Developed, Well Nourished and No Apparent Distress
HEENT: Normocephalic, Atraumatic and Moist Mucous Membranes
Respiratory: Clear to Auscultation; Negative Wheezes, Rales or Rhonchi
Cardiac: Irregular rate and rhythm, tachycardic, and S1/S2
GI: Soft, Nontender and Nondistended
Musculoskeletal: No Clubbing, No Cyanosis and No Edema
Neuro: Awake, Alert and Oriented
Psych: Calm
A/P:
COPD exacerbation:
-Change iv steroids to oral today
-Continue bronchodilators but changed from scheduled doses to as needed to avoid beta agonist stimulation
-On oral doxycycline
-Seen and reviewed CT of the chest and no PE, but evidence of centrilobular emphysema and 1.9 cm opacity left lower lobe.
-Pulmonary consult appreciated
-Updated over the phone today at bedside
Lung mass:
-Pulmonary consult appreciated
- tells me that he has had low-dose CT scan screening as outpatient about 5 times but she does recall anything major although she was told 1 nodule that was probably benign. Regardless, at this point will need to follow-up closely with his 2 cm
nodule after this hospitalization.
-Follow-up as outpatient--> will need follow-up images as outpatient.
Paroxysmal atrial fibrillation with rapid ventricular response:
-Continue rate control, Metoprolol succinate 25 mg p.o. nightly
-Cardiology consult today and will see if they want to increase beta-blockers
-Continue anticoagulation, Eliquis 5 mg p.o. twice a day
-Continue cardiac monitoring
Hypertension, uncontrolled:
-Continue current antihypertensives
-Requested cardiology consultation for further evaluation by patient and request.
-Monitor and adjust blood pressure medications accordingly
Diabetes mellitus type 2:
-Continue Farxiga
-Continue insulin sliding scale
-Monitor blood sugar and adjust medications accordingly
DVT prophylaxis:
-On Eliquis
-Discontinue Lovenox
CODE STATUS:
-Full code
Anticipated Discharge: Within 24 hours
Subjective/Interval History
-
Date of Service: November 09, 2023
Patient is a bit more hypertensive today and tachycardic. Overall his shortness of breath has improved substantially. Afebrile
Objective Data
-
Labs:
Laboratory Results
11/09/23
07:44
Sodium 136
Potassium 5.0
Chloride 100
Carbon Dioxide 24
BUN 25 H
Creatinine 0.8
Glucose 219 H
Calcium 10.1
Vital Signs:
Vital Signs
Temp Pulse Resp BP Pulse Ox
98.3 F 89 20 145/91 96
11/08/23 23:35 11/08/23 23:35 11/08/23 23:35 11/08/23 23:35 11/08/23 23:35
I&O
11/08/23 11/09/23 11/10/23
06:59 06:59 06:59
Intake Total 1200 / 1200 1200 / 1200
Balance 1200 / 1200 1200 / 1200
Review of Systems
-
All other systems: Reviewed and negative
--- NOTE | 2023-11-09 10:10 | PTCARENOTE ---
Assumed care of pt from previous nurse. Pt denies pain. Pt lungs are diminished, mildly FLORES. Call herbert is within reach, pt rings hailey. will cont to monitor.
[2023-11-09] MEDS: DELTASONE 40 MG PO (10:18)
[2023-11-09 10:34] VITALS: BP 152/102; PULSE 102; O2SAT 98
[2023-11-09 11:48] LABS: Glucose - Point of Care 216 mg/dl (70-99)
[2023-11-09] MEDS: NOVOLOG FLEXPEN-LOW RESISTANCE 2 UNITS SC (11:55)
[2023-11-09] MEDS: NOVOLOG FLEXPEN 5 UNITS SC ×2 (11:56→17:47)
[2023-11-09 15:00] VITALS: BP 148/102
--- NOTE | 2023-11-09 16:03 | W.PN.PUL3 ---
Today's Communication / Plan
-
CS
BDs
Dispo
Assessment
-
73-year-old male with history of hypertension, hyperlipidemia, atrial fibrillation on anticoagulation, diabetes presents with 8 to 10 days of upper respiratory symptoms status post doxycycline, steroids and second antibiotic with persistent
symptoms. Found to have significant wheezing on my exam. CT imaging negative for PE, improvement in right lower lobe process. There is a left lower lobe nodule. We are asked to comment on pulmonary process
Acute COPD exacerbation
Diffuse wheezing on exam
Failed outpatient therapy with antibiotic x 2, prednisone
Recent right lower lobe pneumonia, status post 2 courses of antibiotics
Improved radiographically
1.8 cm left lower lobe nodule
not present on abdominal CT imaging 02/06/2023
40+ pack years to smoking
2 packs a day, quit
Conditions present prior to admission
Hypertension/hyperlipidemia
Diabetes
History of right bundle branch block
Atrial fibrillation on Eliquis
History of atrial myxoma
Cardiac surgery 2003, details unclear
Suspected sleep apnea
Negative PSG per patient
Plan/recommendations
Resp ash continues improving
No dyspnea at rest, improved dyspnea on exertion, cough improving as well and with much less expectoration
It appears his prior right lower lobe process has improved
Doubt active infection, procalcitonin normal
Doubt component of heart failure, normal BNP, weight down few pounds over the last week
Continue with treatment for acute COPD exacerbation
Transitioned to IV steroids, Decadron to prednisone 40 mg on 11-09
Rec slow taper, decreasing dose by 10 mg every 4 days to off.
Ramped-up nebulized therapy, continue DuoNebs 4 times a day for today, reevaluate tomorrow, can decrease to as needed if significant improvement continues
Continue albuterol HFA prn upon d/c, states has a current prescription from his outside web user experience strategist
Added budesonide twice daily, continue
GERD therapy will be added while on steroids
Follow blood sugars
Less likely thromboembolic process given chronic anticoagulation for A-fib (apixaban)
Reviewed with patient at length left lower lobe nodule. This was not present on abdominal imaging February 2023
Rapid growth versus infectious process
He will require follow-up CT chest in the next 4 weeks. Follow-up with Dr. Werner, web user experience strategist at [facility]. He is welcome to follow our practice upon discharge, per his report he might return to [facility], instructed to obtain CT films with his
chest CT for comparison
DVT prophylaxis: On Eliquis
Reviewed with patient at length. All questions answered
Disposition efforts
No objection to d/c in AM if remains otherwise stable
Subjective Data
-
Date of Service:
Date of Service: November 09, 2023
Chief Complaint: Pulmonary Follow Up
Subjective:
No major events reported
Resp ash improved
Dyspnea and cough improving, much less expectoration
Remains on RA
Review of Systems
General: Fever (n), Sweats (n), Chills (n) and Satisfactory Appetite
HEENT: Epistaxis (n) and Dysphagia (n)
Cardiopulmonary: Dyspnea on Exertion, Cough, Sputum Production, Wheezing (resolving), Chest Pain (n) and Edema (n)
GI: Abdominal Pain (n), Nausea (n) and Vomiting (n)
Neuro: Weakness
Objective Data
Data Reviewed
Vital Signs / I&O / Oxygen:
Vital Signs
Temp Pulse Resp BP Pulse Ox
97.7 F 85 16 134/97 98
11/09/23 07:00 11/09/23 08:15 11/09/23 08:15 11/09/23 07:00 11/09/23 08:15
Intake and Output
11/08/23 11/09/23 11/10/23
06:59 06:59 06:59
Intake Total 1200 / 1200 1200 / 1200
Balance 1200 / 1200 1200 / 1200
SaO2 98
Physical Exam
General: Comfortable
HEENT: Normocephalic and Moist Mucous Membranes
Cardiovascular: Regular Rhythm, Murmur, Peripheral Edema (n) and Calf Tenderness (n)
Respiratory: Wheeze (n), Rhonchi, Non-Labored Respirations and Stridor (n)
GI: Soft, Non Distended, Non Tender and Normal Bowel Sounds
Neurology: Awake, AO x 3 and No Motor Deficits
Skin: Dry
Labs/Micro/Reports
Lab Data
11/08/23 08:25
11/09/23 07:44
Microbiology
11/07/23 03:15 Blood/Venous Blood Culture - Preliminary
No Growth in 48 hours- Final report to follow
11/07/23 03:15 Blood/Venous Blood Culture - Preliminary
No Growth in 48 hours- Final report to follow
--- NOTE | 2023-11-09 16:07 | CON.CAR ---
Consultation
Consultation Request
Date/Time Consultation Requested: November 09, 2023
Date/Time Consultation Performed: November 09, 2023
Requesting Provider: Hospitalist
Performing Provider: Carlie
Reason for Consultation: Elevated heart rate and blood pressure at family request
Medical History
-
Chief Complaint: Elevated heart rate and blood pressure at family request
History of Present Illness:
Patient is a very pleasant 73-year-old male who is recently been treated for pneumonia, and is now hospitalized for COPD exacerbation. Prior myxoma removal in [address] Garcia at [facility]. Permanent atrial fibrillation for greater than 10 years.
Relatively asymptomatic from his atrial fibrillation. History of normal ejection fraction. He is elevated for COPD exacerbation requiring every 4 hours nebs and steroid treatment. His heart rates have been in the 80/110 range and blood pressures
have creeped up from 1 30-1 60 systolic over 90-1 05 diastolic. He does no longer have a nebulizer requirement as of this afternoon. He is currently ordered for metoprolol as directed and as needed hydralazine. Currently seen asymptomatic without
other cardiovascular issue. Prior history of bradycardia, atherosclerosis of carotid arteries, chest discomfort, and dizziness. Also past medical history notable for diabetes. It is also noted that he has a 2 cm lung mass which is being evaluated.
Past Medical History
Past Medical History: Arrhythmias and COPD
Past Surgical History: Cardiac
Social History
Tobacco: Former Smoker
Alcohol: None
Drug: None
Personal:
Living: With Family
Employment: Retired
Family History
Family History: Reviewed & Not Pertinent
Allergies / Home Medications
Allergy/AdvReac Type Severity Reaction Status Date / Time
bee venom protein (honey bee) Allergy Severe TACHYCARDIA Verified 11/07/23 02:00
oxycodone [From Percocet] Allergy Mild 'LOOPY' Verified 11/07/23 02:00
ezetimibe [From Zetia] Allergy Pharmacy Verified 11/07/23 02:00
to Review
Hrfczll-JOH-RvD Reductase Allergy myalgias Verified 11/07/23 02:00
Inhibitor
Medication Instructions Recorded Confirmed Type
apixaban 5 mg tablet (Eliquis) 5 mg PO BID Blood Clot 01/14/22 11/07/23 History
Prevention/Tx
fenofibrate nanocrystallized 145 145 mg PO QPM High Cholesterol 01/14/22 11/07/23 History
mg tablet
metformin 500 mg tablet 500 mg PO BID Diabetes 01/14/22 11/07/23 History
metoprolol succinate 25 mg 12.5 mg PO QPM Heart 01/14/22 11/07/23 History
tablet,extended release 24 hr Disease/Condition
omega 6-rvs-yqz-fish oil 300 5 cap PO QPM High Cholesterol 01/14/22 11/07/23 History
mg-1,000 mg capsule (Fish Oil)
albuterol sulfate 90 mcg/actuation 2 puff inhalation Q6H PRN 10/26/23 11/07/23 Rx
aerosol inhaler shortness of breath or wheezing
#6.7 grams
doxycycline hyclate 100 mg capsule 100 mg PO BID #19 caps 10/26/23 11/07/23 Rx
amoxicillin 875 mg PO BID 11/07/23 11/07/23 History
cholecalciferol (vitamin D3) 50 150 mcg PO DAILY Supplement 11/07/23 11/07/23 History
mcg (2,000 unit) capsule (Vitamin
D3)
dapagliflozin propanediol 5 mg 5 mg PO DAILY diabetes 11/07/23 11/07/23 History
tablet (Farxiga)
prednisone 40 mg PO DAILY 11/07/23 11/07/23 History
Review of Systems
-
All other systems: Negative unless noted
Respiratory: Cough and Trouble Breathing
Physical Exam
Vital Signs
Temp Pulse Resp BP Pulse Ox
97.7 F 85 16 134/97 98
11/09/23 07:00 11/09/23 08:15 11/09/23 08:15 11/09/23 07:00 11/09/23 08:15
Lab Results
11/08/23 08:25
11/09/23 07:44
Wdl-G-Iegbsjhbodp Pept 291 pg/ml 11/07/23 04:48
Physical Exam
General: Well Developed and Well Nourished
HEENT: Normocephalic
Respiratory: Clear, Wheezes and Rhonchi
Cardiac: S1/S2 and Irregular Rhythm
Breast: Deferred by me
GI: Soft, Non Tender and Non Distended
Rectal: Deferred by Provider
Musculoskeletal: No Clubbing and No Cyanosis
Skin: Warm and Dry
Neuro: Awake, Alert and AO x 3
Hematologic/Lymphatic: No Lymphadenopathy
Psych: Calm
Impression / Plan
-
Impression:
Hypertension
Permanent atrial fibrillation
Mildly elevated heart rates
COPD exacerbation:
Lung mass:
Permanent atrial fibrillation
History of myxoma removal
Diabetes mellitus type 2:
Recommendations:
I believe his hypertension and mildly elevated heart rates are combination of his high-dose prednisone use as well as every 4 hours nebulizer treatments including beta agonist which would elevate his heart rate and blood pressure. I agree with
removing beta agonist nebulizers from his therapies
Continue metoprolol for his heart rates although I do think it is an appropriate dose which we can further adjust depending upon next 24 to 48 hours. Would consider telemetry if we are going to adjust metoprolol
-Continue as needed hydralazine
-He has an appointment in approximately 2 weeks with our office and he will monitor his blood pressures at home and given the fact that I suspect he will become normotensive off of beta agonist and with weaning his prednisone would make no further
adjustments beyond the as needed hydralazine at this time
Data Reviewed
-
EKG: Tracing Personally Visualized and interpreted
Radiology: Image Personally Visualized and interpreted
Labs: Labs Reviewed by me
Old Records: Reviewed
[2023-11-09 16:55] LABS: Glucose - Point of Care 267 mg/dl (70-99)
[2023-11-09] MEDS: NOVOLOG FLEXPEN-LOW RESISTANCE 3 UNITS SC (17:46)
[2023-11-09] MEDS: TOPROL XL 25 MG PO (17:53)
[2023-11-09 21:29] LABS: Glucose - Point of Care 180 mg/dl (70-99)
[2023-11-09 23:20] VITALS: BP 146/94
[2023-11-10 07:30] VITALS: BP 121/81
[2023-11-10 07:35] VITALS: BP 147/84
--- NOTE | 2023-11-10 07:40 | W.PN.HOSP.TC ---
Today's Communication/Plan
-
Continue current management. Discharge planning today.
Assessment / Plan
Assessment / Plan
Physical exam:
General: Well Developed, Well Nourished and No Apparent Distress
HEENT: Normocephalic, Atraumatic and Moist Mucous Membranes
Respiratory: Clear to Auscultation; Negative Wheezes, Rales or Rhonchi
Cardiac: Irregular rate and rhythm, and S1/S2
GI: Soft, Nontender and Nondistended
Musculoskeletal: No Clubbing, No Cyanosis and No Edema
Neuro: Awake, Alert and Oriented
Psych: Calm
A/P:
COPD exacerbation:
-Changed iv steroids to oral
-Continue bronchodilators but changed from scheduled doses to as needed to avoid beta agonist stimulation
-On oral doxycycline
-Seen and reviewed CT of the chest and no PE, but evidence of centrilobular emphysema and 1.9 cm opacity left lower lobe.
-Pulmonary consult appreciated
-Updated over the phone yesterday
Lung mass:
-Pulmonary consult appreciated
- tells me that he has had low-dose CT scan screening as outpatient about 5 times but she does recall anything major although she was told 1 nodule that was probably benign. Regardless, at this point will need to follow-up closely with his 2 cm
nodule after this hospitalization.
-Follow-up as outpatient--> will need follow-up images as outpatient.
Paroxysmal atrial fibrillation with rapid ventricular response:
-Continue rate control, Metoprolol succinate 25 mg p.o. nightly
-Cardiology consult appreciated--> they do not recommend any changes on his cardiac medications.
-Continue anticoagulation, Eliquis 5 mg p.o. twice a day
-Continue cardiac monitoring
Hypertension, uncontrolled:
-Continue current antihypertensives
-Requested cardiology consultation for further evaluation by patient and request.
-Monitor and adjust blood pressure medications accordingly
Diabetes mellitus type 2:
-Continue Farxiga
-Continue insulin sliding scale
-Monitor blood sugar and adjust medications accordingly
DVT prophylaxis:
-On Eliquis
-Discontinue Lovenox
CODE STATUS:
-Full code
Anticipated Discharge: Today
Subjective/Interval History
-
Date of Service: November 10, 2023
Patient has any chest pain or shortness of breath today. He feels better overall. Blood pressure slightly up but stable and has not required any increase of his medications.
Objective Data
-
Labs:
Laboratory Results
11/10/23
07:10
Sodium Pending
Potassium Pending
Chloride Pending
Carbon Dioxide Pending
BUN Pending
Creatinine Pending
Glucose Pending
Calcium Pending
Vital Signs:
Vital Signs
Temp Pulse Resp BP Pulse Ox
98.0 F 84 16 146/94 97
11/09/23 23:20 11/09/23 23:20 11/09/23 23:20 11/09/23 23:20 11/09/23 23:20
I&O
11/09/23 11/10/23 11/11/23
06:59 06:59 06:59
Intake Total 1200 / 1200 960 / 960
Balance 1200 / 1200 960 / 960
Review of Systems
-
All other systems: Reviewed and negative
[2023-11-10] MEDS: VIBRAMYCIN 100 MG PO (08:20)
[2023-11-10] MEDS: ELIQUIS 5 MG PO (08:20)
[2023-11-10] MEDS: PROTONIX IV 40 MG IV (08:21)
[2023-11-10] MEDS: FARXIGA 5 MG PO (08:21)
[2023-11-10] MEDS: DELTASONE 40 MG PO (08:21)
[2023-11-10] MEDS: NSS (PRESERVATIVE FREE) 10 ML IV (08:21)
[2023-11-10 08:51] LABS: Blood Urea Nitrogen 25 mg/dl (9-20); Calcium 9.6 mg/dl (8.4-10.2); Carbon Dioxide 24 mmol/L (22-30); Chloride 100 mmol/L (98-107); Estimated Creatinine Clearance 89 ml/min; Glucose 125 mg/dl (70-99); Potassium 3.9 mmol/L (3.5-5.1); Sodium 135 mmol/L (135-145); eGFR > 60.00
[2023-11-10] MEDS: NOVOLOG FLEXPEN-LOW RESISTANCE SC (08:52)
[2023-11-10] MEDS: NOVOLOG FLEXPEN 5 UNITS SC ×2 (08:53→11:50)
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
--- NOTE | 2023-11-10 10:56 | CM ---
Patient seen bedside, reports no new concerns at this time. Patient reports his daughter will provide transportation home upon discharge. IMM reviewed, signed, placed in patient chart. CM will continue to follow for discharge planning needs.
Plan; home no needs.
[2023-11-10 11:42] LABS: Glucose - Point of Care 208 mg/dl (70-99)
[2023-11-10] MEDS: NOVOLOG FLEXPEN-LOW RESISTANCE 2 UNITS SC (11:48)
--- NOTE | 2023-11-10 11:49 | W.PN.PUL3 ---
Addendum entered and electronically signed by Yair Gar MD 11/10/23 12:55:
Alerted by Dr Honre, budesonide order was not entered and consequently not given this adm
Will not start budesonide now or upon d/c
Resp ash stable for d/c
Original Note:
Today's Communication / Plan
-
Prednisone taper
Budesonide
BDs
Dispo
Assessment
-
73-year-old male with history of hypertension, hyperlipidemia, atrial fibrillation on anticoagulation, diabetes presents with 8 to 10 days of upper respiratory symptoms status post doxycycline, steroids and second antibiotic with persistent
symptoms. Found to have significant wheezing on my exam. CT imaging negative for PE, improvement in right lower lobe process. There is a left lower lobe nodule. We are asked to comment on pulmonary process
Acute COPD exacerbation
Diffuse wheezing on exam on adm
Failed outpatient therapy with antibiotic x 2, prednisone
Recent right lower lobe pneumonia, status post 2 courses of antibiotics
Improved radiographically
1.8 cm left lower lobe nodule
not present on abdominal CT imaging 02/06/2023
40+ pack years to smoking
2 packs a day, quit
Conditions present prior to admission
Hypertension/hyperlipidemia
Diabetes
History of right bundle branch block
Atrial fibrillation on Eliquis
History of atrial myxoma
Cardiac surgery 2003, details unclear
Suspected sleep apnea
Negative PSG per patient
Plan/recommendations
Resp ash continues improving
No dyspnea at rest, improved dyspnea on exertion, cough improving as well and with much less expectoration
It appears his prior right lower lobe process has improved
Doubt active infection, procalcitonin normal
Doubt component of heart failure, normal BNP, weight down few pounds over the last week
Continue with treatment for acute COPD exacerbation
Transitioned to IV steroids, Decadron to prednisone 40 mg on 11-09
Rec slow taper, decreasing dose by 10 mg every 4 days to off.
Ramped-up nebulized therapy, transition DuoNebs 4 times a day to as needed
Continue albuterol HFA prn upon d/c, states has a current prescription from his outside drier
Added budesonide twice daily, continue upon d/c
GERD therapy will be added while on steroids
Follow blood sugars
Less likely thromboembolic process given chronic anticoagulation for A-fib (apixaban)
Reviewed with patient at length left lower lobe nodule. This was not present on abdominal imaging February 2023
Rapid growth versus infectious process
He will require follow-up CT chest in the next 4 weeks. Follow-up with Dr. Werner, drier at [place]. He is welcome to follow our practice upon discharge, per his report he might return to [place], instructed to obtain CT films with his
chest CT for comparison. He got his chest films in a disc from radiology
DVT prophylaxis: On Eliquis
Reviewed with patient at length. All questions answered
Disposition efforts
No objection to d/c today
D/w Mr Dean on a daily basis
Subjective Data
-
Date of Service:
Date of Service: November 10, 2023
Chief Complaint: Pulmonary Follow Up
Subjective:
No major events reported
Woke up a couple of times with cough, expectorated, then able to go back to sleep with no problem
Got his chest films from radiology
Review of Systems
General: Fever (n), Sweats (n), Chills and Satisfactory Appetite
HEENT: Epistaxis (n) and Dysphagia
Cardiopulmonary: Dyspnea (n at rest), Dyspnea on Exertion (very mild), Sputum Production (continues improving), Wheezing (n), Chest Pain (n) and Edema
GI: Abdominal Pain (n), Nausea and Vomiting
Neuro: Weakness (n)
Objective Data
Data Reviewed
Vital Signs / I&O / Oxygen:
Vital Signs
Temp Pulse Resp BP Pulse Ox
98.0 F 86 18 147/84 96
11/10/23 07:30 11/10/23 07:35 11/10/23 07:30 11/10/23 07:35 11/10/23 07:30
Intake and Output
11/09/23 11/10/23 11/11/23
06:59 06:59 06:59
Intake Total 1200 / 1200 960 / 960
Balance 1200 / 1200 960 / 960
SaO2 96
Physical Exam
General: Comfortable
HEENT: Normocephalic and Moist Mucous Membranes
Cardiovascular: Regular Rhythm, Murmur, Peripheral Edema (n) and Calf Tenderness (n)
Respiratory: Wheeze (n), Rhonchi, Non-Labored Respirations and Stridor (n)
GI: Soft, Non Distended, Non Tender and Normal Bowel Sounds
Neurology: Awake, AO x 3 and No Motor Deficits
Skin: Dry
Labs/Micro/Reports
Lab Data
11/08/23 08:25
11/10/23 07:10
Microbiology
11/07/23 03:15 Blood/Venous Blood Culture - Preliminary
No Growth in 72 hours- Final report to follow
11/07/23 03:15 Blood/Venous Blood Culture - Preliminary
No Growth in 72 hours- Final report to follow
--- NOTE | 2023-11-10 12:34 | W.PN.UPDATE ---
Update Note
Progress Note Update
bp and hr acceptable. sign off
--- NOTE | 2023-11-10 12:42 | W.DCSUMMARY ---
Discharge Summary
Discharge Data
Date of Admission: 11/07/23
Date of Discharge: 11/10/23
-
Pending Results: No
Hospital Course
Patient 73 years old male with history hypertension, hyperlipidemia, diabetes mellitus, COPD, atrial fibrillation, myxoma, presented to the hospital with shortness of breath and cough consistent with COPD exacerbation. He was also found to have a
1.8 cm left lower lobe nodule/mass. Pulmonary was consulted. Patient was treated initially with oral steroids but he had significant bronchospasm so he was switched to IV steroids and bronchodilators. Patient responded well subsequently. His
blood pressure and heart rate were slightly elevated and cardiology consulted for further evaluation and they recommended to continue current treatment without any changes and he can follow-up as outpatient at the office. He will also require
further evaluation of the lung nodule/mass and he will decide if he wants to follow-up with his own inventory associate and driver or our local inventory associate and driver as outpatient. I reached out to pulmonary and indicated that he has not used budesonide here so pulmonary
is okay not to start upon discharge. Otherwise, patient is hemodynamically stable, afebrile, back to his baseline. He also had a home oxygen assessment and his pulse ox has been 96% on room so he did not require any oxygen. He will be discharged
in stable condition today.
Discharge duration: 34 minutes
Discharge Plan
-
Patient Disposition: Home (Routine Discharge)
Discharge Diagnosis/Procedures: Chronic obstructive pulmonary disease exacerbation. Paroxysmal atrial fibrillation. Lung mass. Hypertension. Diabetes mellitus type 2.
Diet: Low Cholesterol
Activity: As tolerated
Driving Restrictions: As prior to admission
Blood Work: Please PCP to order CBC, BMP within 1 week
Activity Restrictions/Additional Instructions:
Wound Care Instructions
R dorsal foot burn-clean with saline or mild soap and water, zinc barrier ointment to surrounding skin, Silvadene cream, cover with non stick silicone border dressing (i.e. Silicone border foam), change daily. When wound heals, apply Vaseline or
Aquaphor ointment to affected area twice a day and wear a cotton sock with comfortable shoes. Avoid any sun exposure to R dorsal foot. Wear sun block.
Follow up with your wound care center as needed.
Referrals:
Primary care, provider [Other] (Please see less than 1 week)
Shanel Garcia MD [Active] -
(CT chest ION without contrast in 4 weeks
To see Radha right after imaging with PFT)
Basim Sexton MD [Active] - in two to four weeks
Enoch Harley DO [Family Provider] -
Prescriptions:
New
doxycycline hyclate 100 mg Capsule
100 mg PO BID 2 Days Qty: 4 0RF
prednisone 10 mg Tablet
See Rx Instructions .ROUTE .COMPLEX Qty: 30 0RF
Rx Instructions:
Take By Mouth:
40 mg daily x3 days, 30 mg daily x3 days,
20 mg daily x3 days, 10 mg daily x3 days.
Continued
metformin 500 MG tablet
500 mg PO BID
fenofibrate nanocrystallized 145 MG tablet
145 mg PO QPM
omega 6-lgk-htx-fish oil [Fish Oil] 1 EACH capsule
5 cap PO QPM
Eliquis 5 MG tablet
5 mg PO BID
metoprolol succinate 25 MG tablet extended release 24 hr
12.5 mg PO QPM
albuterol sulfate 90 mcg/actuation HFA aerosol inhaler
2 puff inhalation Q6H PRN (Reason: shortness of breath or wheezing) Qty: 6.7 0RF
cholecalciferol (vitamin D3) [Vitamin D3] 50 mcg (2,000 unit) Capsule
150 mcg PO DAILY
dapagliflozin propanediol [Farxiga] 5 mg tablet
5 mg PO DAILY
Discontinued
doxycycline hyclate 100 mg capsule
100 mg PO BID Qty: 19 0RF
amoxicillin
875 mg PO BID
Patient Comments:
x 10 days/ Pt has 6 days left
prednisone
40 mg PO DAILY
Rx Instructions:
Start 30 mg today 11/07
Discharge Orders:
Discharge Patient (As Directed); Ordered 11/10/23
Ordered By: Hakeem Horne
Discharge Date and Time
Discharge Date/Time: 11/10/23 15:15
== END 2023-11-10 15:15 | disposition home or self-care (01) | DRG 190 ==
LOC: 4 WEST ACU 16:09
PROVIDERS: Clinical Nurse Specialist Family Health; ADMITTING PHYSICIAN Internal Medicine; ATTENDING PHYSICIAN Hospitalist; CONSULT PHYSICIAN Internal Medicine Cardiovascular Disease; CONSULT PHYSICIAN Internal Medicine Pulmonary Disease; EMERGENCY PHYSICIAN Student in an Organized Health Care Education/Training Program; FAMILY PHYSICIAN Family Medicine
DX: J44.1 Chronic obstructive pulmonary disease with (acute) exacerbation (principal); J18.9 Pneumonia, unspecified organism; I48.21 Permanent atrial fibrillation; I10 Essential (primary) hypertension; E11.9 Type 2 diabetes mellitus without complications; R91.1 Solitary pulmonary nodule; J43.2 Centrilobular emphysema
CPT/HCPCS: 71046; 71275; 80048; 80053; 82962; 83036; 83605; 83880; 84145; 85025; 85027; 87040; 93005; 94640; 96360; 96361; 97162; 99285; Q9967

== ENCOUNTER → 2023-12-10 15:34 | Outpatient (REF) | payer MEDICARE, OTHER, SELFPAY | LOC: DHCBS HW 15:34 | PROVIDERS: ATTENDING PHYSICIAN Nurse Practitioner; FAMILY PHYSICIAN Family Medicine | DX: I48.91 Unspecified atrial fibrillation (principal) | CPT/HCPCS: 93306 ==

== ENCOUNTER 2024-03-22 20:43 | Emergency (ER) | payer MEDICARE, OTHER, SELFPAY ==
[2024-03-22 21:16] VITALS: BP 197/149
[2024-03-22 21:17] VITALS: BMI 32.3
[2024-03-22 21:24] VITALS: BP 193/92
[2024-03-22] MEDS: NSS 1000 IV (21:30)
--- NOTE | 2024-03-22 21:32 | ED.GENMED ---
History of Present Illness
General
Chief Complaint: Flank Pain
Time Seen by Provider: 03/22/24 21:23
Travel History
Have you had any contact with someone who has COVID-19?: No
Do you have any symptoms of coronavirus? Fever > 100 degrees, chills, cough, shortness of breath, sore throat, loss of taste or smell, muscle aches, or headache?: No
History of Present Illness
History of Present Illness:
73-year-old male with history of A-fib on Eliquis presents to the emergency department for evaluation of sudden onset of left flank pain radiating to the suprapubic space beginning at 1900 hrs. today. Pain is sharp in nature, rated 10 out of 10.
Has never had similar symptoms. No fevers or vomiting.
Past History
Past History
ED Past Medical History: Arrthythmia (a FIB), COPD, HTN, Hypercholesterolemia, NIDDM and Other (PNA. )
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
Social History
Tobacco: Former smoker
Alcohol: Occasional
Personal:
Living: with family
Employment: Employed
Review of Systems
Review of Systems
Allergies reviewed?: Yes
All Other Systems: ROS reviewed and negative except as documented in HPI and ROS
Phy Exam
Physical Exam
Physical Exam:
GEN: Diaphoretic, pacing around the room, clutching the left leg
HEENT: Oral mucosa moist, no scleral icterus
Cardiac: Mildly tachycardic, regular
Lung: No respiratory distress, no tachypnea, lungs clear to auscultation
Abd: Soft, non tender, non peritoneal
MSK: No gross deformity or injuries
Skin: Good color, no pallor or jaundice, no rashes
Neuro: AO x3, moves all extremities freely
Psych: Calm, cooperative
Course
Orders/Labs/Results
Orders:
Orders
03/22/24 21:27
Complete Blood Count/With Diff Urgent
Comprehensive Metabolic Panel Urgent
Lipase Urgent
Urinalysis Reflex To Culture Urgent
Date Specimen was Collected: 03/22/24
Time Specimen was Collected: 21:25
03/22/24 21:32
CT Abd/pel Without Iv Or Oral Urgent
Comment:
Reason For Exam: R flank pain
Ketorolac [Toradol] 15 mg IV NOW STA
03/22/24 22:09
0.9% Sodium Chloride 1000 ml [Nss] 1,000 ml IV BOLUS
03/22/24 22:21
Tamsulosin [Flomax] 0.4 mg PO NOW STA
03/22/24 22:22
Diclofenac [Voltaren] 75 mg PO NOW STA
03/22/24 23:12
Ketorolac [Toradol] 10 mg PO NOW STA
Abnormal Lab Results
03/22/24
21:27
Abs Immat Gran (auto) 0.1 H 10^3/uL
(0-0.05)
Absolute Neuts (auto) 7.0 H 10^3/uL
(1.4-6.5)
BUN 24 H mg/dl
(9-20)
Glucose 239 H mg/dl
(70-99)
03/22/24 21:27
03/22/24 21:27
Vital Signs
Initial and Last Documented VS:
Initial Vital Signs
Temp Pulse Resp Pulse Ox
97.6 F 60 26 96
03/22/24 20:46 03/22/24 20:46 03/22/24 20:46 03/22/24 20:46
Last Documented Vital Signs
Temp Pulse Resp BP Pulse Ox
97.6 F 60 26 161/76 96
03/22/24 20:46 03/22/24 20:46 03/22/24 20:46 03/22/24 22:00 03/22/24 22:15
MDM/Problems Addressed
MDM/Problems Addressed:
Patient found to have a 5 mm left UVJ stone, his pain resolved after Toradol administration as well as IV fluids. Although he is on an anticoagulant, he is quite apprehensive to using opiates for pain thus we will provide him with a short course of
diclofenac for home use. He will be also given Flomax as well as opiates should he have breakthrough symptoms. Discussed ED return parameters. He has scheduled follow-up with his urologist next week for any potential stenting if needed
*Critical Care Note
Total Time (30-74mins, 75-104mins- exclusive of procedures): Not Applicable
ED Attending Note
-
Portions of this chart may have been created with voice recognition software.� Occasional wrong word or��sound alike� substitutions may have occurred due to the inherent limitations of voice recognition software.
Discharge Plan
Departure
Patient Disposition: Home (Routine Discharge)
Date of Disposition: 03/22/24
Time of Disposition: 22:55
Patient with high blood pressure during this ER visit?: No
Discharge Problem:
Ureterolithiasis
Instructions: Kidney Stones (DC), How to Strain Your Urine
Prescriptions:
New
tamsulosin [Flomax] 0.4 mg capsule
0.4 mg PO HS Qty: 10 0RF
diclofenac sodium 75 mg tablet,delayed release (DR/EC)
75 mg PO BID Qty: 6 0RF
tramadol 50 mg tablet
50 mg PO BID PRN (Reason: Pain) Qty: 6 0RF
No Action
metformin 500 MG tablet
500 mg PO BID
fenofibrate nanocrystallized 145 MG tablet
145 mg PO QPM
omega 9-ykk-heo-fish oil [Fish Oil] 1 EACH capsule
5 cap PO QPM
Eliquis 5 MG tablet
5 mg PO BID
metoprolol succinate 25 MG tablet extended release 24 hr
12.5 mg PO QPM
albuterol sulfate 90 mcg/actuation HFA aerosol inhaler
2 puff inhalation Q6H PRN (Reason: shortness of breath or wheezing) Qty: 6.7 0RF
cholecalciferol (vitamin D3) [Vitamin D3] 50 mcg (2,000 unit) Capsule
150 mcg PO DAILY
dapagliflozin propanediol [Farxiga] 5 mg tablet
5 mg PO DAILY
doxycycline hyclate 100 mg Capsule
100 mg PO BID 2 Days Qty: 4 0RF
prednisone 10 mg Tablet
See Rx Instructions .ROUTE .COMPLEX Qty: 30 0RF
Rx Instructions:
Take By Mouth:
40 mg daily x3 days, 30 mg daily x3 days,
20 mg daily x3 days, 10 mg daily x3 days.
Activity Restrictions/Additional Instructions:
Return to the ER if you develop a fever or severe pain
Interventions
Interventions:
*Risk Screen - Suicide Last Done: 03/22/24 20:46
*General Assessment Last Done: 03/22/24 21:37
*Neglect/Abuse Screening Last Done: 03/22/24 20:46
ED- Fall Risk Assessment Last Done: 03/22/24 21:37
*ED COVID-19 Vaccine History Last Done: 03/22/24 21:37
DL-Hzrewf-Hwecyivhou Assessment Last Done: 03/22/24 21:37
ED-Male Genitourinary Assessment Last Done: 03/22/24 21:37
Discharge Date and Time
Print Language: CYPRIOT
[2024-03-22 21:33] LABS: % Basophils 0.5 % (0-2); % Eosinophils 1.4 % (0-6); % Immature Granulocytes 0.5 % (0-0.5); % Lymphocytes 20.6 % (20.5-51.1); % Monocytes 6.2 % (1.7-9.3); % Neutrophils 70.8 % (42.2-75.2); Absolute Basophils 0.1 10^3/uL (0-0.2); Absolute Eosinophils 0.1 10^3/uL (0-0.7); Absolute Immature Granulocytes 0.1 10^3/uL (0-0.05); Absolute Monocytes 0.6 10^3/uL (0.1-0.6); Hematocrit 47.4 % (39.0-52.0); Hemoglobin 16.8 g/dL (13.0-18.0); Mean Corp Hgb Conc. 35.4 g/dL (33.0-37.0); Mean Corpuscular Hgb 30.5 pg (27.0-31.0); Mean Corpuscular Volume 86.2 fL (80.0-94.0); Mean Platelet Volume 10.3 fL (7.4-10.4); Nucleated Red Blood Cells % 0 % (-); Platelet Count 181 10^3/uL (130-400); Red Cell Dist. Width 11.9 % (11.5-14.5); White Blood Cell Count 9.9 10^3/uL (4.8-10.8)
[2024-03-22] MEDS: TORADOL 15 MG IV (21:34)
[2024-03-22 21:50] LABS: ALT (SGPT) 28 U/L (0-50); AST (SGOT) 29 U/L (17-59); Albumin 4.9 g/dl (3.5-5.0); Alkaline Phosphatase 73 U/L (38-126); Blood Urea Nitrogen 24 mg/dl (9-20); Calcium 10.2 mg/dl (8.4-10.2); Carbon Dioxide 25 mmol/L (22-30); Chloride 101 mmol/L (98-107); Estimated Creatinine Clearance 69 ml/min; Glucose 239 mg/dl (70-99); Lipase 81 U/L (23-300); Potassium 4.5 mmol/L (3.5-5.1); Sodium 138 mmol/L (135-145); Total Bilirubin 0.6 mg/dl (0.2-1.3); Total Protein 7.5 g/dl (6.3-8.2); Urine Albumin Negative (Neg - Trace); Urine Bilirubin Negative (Negative); Urine Character Clear (Clear); Urine Color Yellow; Urine Glucose Negative (Negative); Urine Ketone Negative (Negative); Urine Leukocyte Negative (Negative); Urine Nitrite Negative (Negative); Urine Occult Blood Negative (Negative); Urine Urobilinogen Negative (Neg - 1+); eGFR > 60.00
[2024-03-22 21:54] VITALS: BP 174/82
[2024-03-22 22:00] VITALS: BP 161/76
[2024-03-22] MEDS: FLOMAX 0.400000000000000022 MG PO (22:27)
[2024-03-22 23:00] VITALS: BP 131/85
[2024-03-22] MEDS: TORADOL 10 MG PO (23:32)
== END 2024-03-22 23:35 | disposition home or self-care (01) ==
LOC: EMR 20:43
PROVIDERS: Physician Assistant; EMERGENCY PHYSICIAN Emergency Medicine; FAMILY PHYSICIAN Family Medicine
DX: N13.2 Hydronephrosis with renal and ureteral calculous obstruction (principal); I48.91 Unspecified atrial fibrillation; Z79.01 Long term (current) use of anticoagulants; Z87.891 Personal history of nicotine dependence
CPT/HCPCS: 99285; 96374; 96361; 74176; 80053; 81003; 83690; 85025

== ENCOUNTER → 2024-12-10 11:36 | Outpatient (REF) | payer MEDICARE, OTHER, SELFPAY | LOC: HWRCS 11:36 | PROVIDERS: ATTENDING PHYSICIAN Nurse Practitioner; FAMILY PHYSICIAN Internal Medicine | DX: I48.91 Unspecified atrial fibrillation (principal) | CPT/HCPCS: 93306 ==

== ENCOUNTER 2025-01-10 06:00 | Day surgery (SDC) | payer MEDICARE, OTHER, SELFPAY ==
[2024-12-27 09:23] VITALS: BMI 30.7
[2025-01-10] VITALS (20 sets, daily range): BP systolic 97–163; BP diastolic 64–88; BMI 30.4
[2025-01-10 06:50] LABS: Glucose - Point of Care 153 mg/dl (70-99)
--- NOTE | 2025-01-10 08:04 | ITS.CL.ABL ---
[facility] - Ablation
Ablation
Procedure Report:
ELECTROPHYSIOLOGIC STUDY AND POSSIBLE ABLATION
DATE: January 10, 2025
Primary Care Provider: Dr. Tonio Juárez
INDICATION:
Symptomatic Atrial Fibrillation.
Persistent
He has been maintained on oral anticoagulation, apixaban without bleeding complications.
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 It is noted that atrial myxoma was incidentally discovered on an echo in 2003 and was subsequently resected November 19, 2003 at the [facility] by Dr. Garcia. He has been
undergoing interval surveillance ECHO.
Most recent echocardiogram is from December 10, 2023 finding normal left ventricular size and function. No significant valvular disease. No evidence of atrial mass/myxoma
Additionally, he has a history of PVCs, diabetes mellitus, COPD and dyslipidemia.
HISTORY: See H and P.
Symptomatic AF, poorly controlled with attempted medical therapy
HAS-BLED: 1
Age
CHADSVASc: 2
Age
DM
PRESENTING RHYTHM: AF
HISTORY: See H and P.
Symptomatic AF, poorly controlled with attempted medical therapy.
ANTICOAGULATION: Apixaban 5 mg twice daily
'TIME-OUT': called and confirmed.
SEDATION/ANESTHESIA: provided via the anesthesia department using general anesthesia.
PROCEDURE:
Ultrasound Guidance with real-time visualization of needle insertion and vessel patency performed by ks for femoral venous Vascular Access.
Under real-time US guidance, the needle was advanced with negative pressure into the vein. The needle was seen entering the vessel lumen with a good return of dark red flow, the syringe was removed, non-pulsatile, dark red blood low was noted and
the wire was passed without difficulty, then the needle was removed. US confirmed the wire was in the vein, not going into an artery,
Images were taken and saved for the patient's permanent record. Imaging findings typical femoral venous anatomy. Direct visualization of needle puncture into the femoral vein was observed and recorded.
A decapolar CS catheter was placed within the CS for mapping and pacing.
The intracardiac ultrasound catheter was positioned in the RA for continuous intracardiac ultrasound imaging.
Rhythm at presentation is an atrial tachycardia at cycle at 260 ms. Activation and entrainment mapping from the decapolar catheter suggested right atrial flutter.
Heparin bolus and infusion to target ACT at 300 -350 seconds was administered. Using the 9 mm sphere Affera mapping and ablation catheter additional activation and entrainment mapping of the right atrium was performed and confirmed clockwise right
atrial flutter, CTI dependent. Ablation was performed using the 9 mm sphere utilizing radiofrequency energy close to the tricuspid annulus and pulsed electric field energy close to the inferior vena cava. Ablation was performed at approximately
the 6 o'clock position in the YEMENI 30 degree view creating a line of block. During ablation, the tachycardia slowed and then terminated. Ablation was completed to create a line of bidirectional block. The sphere catheter was then withdrawn and
attention was turned to atrial fibrillation. Transseptal puncture was performed. This entailed advancing a sheath with dilator into the superior vena cava and withdrawing both (monitoring intracardiac ultrasound, fluoroscopy and tip pressure) with
the tip oriented toward the atrial septum. The fossa ovalis was engaged (indicated by sudden displacement of the sheath tip as well as tenting of the fossa seen on intracardiac ultrasound).
Transseptal puncture was performed. Left atrial catheter position was confirmed by echocardiographic imaging, pressure monitoring (LA mean pressure 16 mm Hg) and fluoroscopy. The sheath was advanced over the dilator and positioned in the left
atrium.
The [employer] multipolar mapping/ablation Sphere-9 catheter was positioned through the transseptal sheath for high density mapping.
Geometry and voltage mapping was performed using the [employer] mapping system for three-dimensional electroanatomical mapping.
Catheter positioning was guided and confirmed using both I.C.E. and fluoroscopy.
PV isolation approach was used to electrically isolate each PV ostia there is a very short segment common left vein which quickly bifurcates into LSPV and LIPV, there are independent right sided veins, RSPV and RIPV.
Additional energy applications/additional ablation set was required to accomplish wide area circumferential ablation around each of the pulmonary vein sets and additionally ablation to accomplish LA posterior wall ablation.
Remapping with the Sphere-9 catheter found that all PVPs were eliminated at each vein demonstrating entrance block. Also pacing around the the circumference of the ostia was performed at 10 ma and 2.0 msec output to assess for exit block. This
demonstrated electrical isolation at each of the pulmonary vein ostia (LSPV, LIPV, RSPV, RIPV). There is also entrance and exit block at the LA posterior wall.
Programmed electrostimulation (burst atrial pacing down to 250 ms and delivery of atrial decremental extrastimuli down to 600/200 ms) failed to induce any sustained arrhythmias.
I.C.E. :
Pre-Ablation Post-Ablation
LVEF: 55 % 55 %
WMA: none none
Pericardial effusion: none none
COMPLICATIONS:
None
SUMMARY:
- Mapping and ablation to isolate the PVs
- Additional AF ablation set after PVI.
- Mapping and ablation of second tachycardia (clockwise right atrial CTI flutter)
- 3-D Electroanatomical Mapping
- Intracardiac Ultrasound
- Ultrasound guidance for vascular access
Post ablation, I discussed today's findings and results with the patient's and daughter.
RECOMMENDATIONS:
- Observe in monitored bed.
- Maintain oral anticoagulation.
- Office visit is scheduled for April 14, 2025.
Copy to: Dr. Tonio Juárez
[2025-01-10 08:50] LABS: ACT-LR - POC 311 Seconds (116-155)
[2025-01-10 09:12] LABS: ACT-LR - POC 329 Seconds (116-155)
[2025-01-10 09:31] LABS: ACT-LR - POC 334 Seconds (116-155)
[2025-01-10 11:05] LABS: Glucose - Point of Care 179 mg/dl (70-99)
--- NOTE | 2025-01-10 14:35 | W.PN.UPDATE ---
Update Note
Progress Note Update
Pt seen post PFA. Right groin site without ht/bleeding, non tender. Mild swelling post procedure that was painless and did not compress out, stable after several hours of BR/monitoring. OOB ambulating, urinating without difficulty. Post EKG SB/SR
50-60s, inc RBBB as before, no acute changes. Resume eliquis tonight at usual time. Followup at [facility] as scheduled. Home today if groin site/tele remain stable.
== END 2025-01-10 15:10 | disposition home or self-care (01) ==
LOC: CATH 06:00
PROVIDERS: ATTENDING PHYSICIAN Internal Medicine Cardiovascular Disease; FAMILY PHYSICIAN Internal Medicine
DX: I48.19 Other persistent atrial fibrillation (principal); I10 Essential (primary) hypertension; E78.5 Hyperlipidemia, unspecified; Z86.018 Personal history of other benign neoplasm; R91.1 Solitary pulmonary nodule; Z79.01 Long term (current) use of anticoagulants; I48.92 Unspecified atrial flutter; J43.9 Emphysema, unspecified; Z87.891 Personal history of nicotine dependence; E11.9 Type 2 diabetes mellitus without complications; Z79.84 Long term (current) use of oral hypoglycemic drugs; Z68.30 Body mass index [BMI] 30.0-30.9, adult; E66.9 Obesity, unspecified; Z86.006 Personal history of melanoma in-situ; Z88.5 Allergy status to narcotic agent; Z88.8 Allergy status to other drugs, medicaments and biological substances; Z91.030 Bee allergy status; I47.19 Other supraventricular tachycardia; Z87.442 Personal history of urinary calculi; Z90.49 Acquired absence of other specified parts of digestive tract
CPT/HCPCS: C1733; C1892; C1730; C1766; C1894; 82962; 85347; 86900; 86901; 93005; 93655; 93656; 93657

== ENCOUNTER → 2025-09-21 14:17 | Outpatient (REF) | payer MEDICARE, OTHER, SELFPAY | LOC: RAD 14:17 | PROVIDERS: ATTENDING PHYSICIAN Internal Medicine Cardiovascular Disease; FAMILY PHYSICIAN Internal Medicine | DX: R09.89 Other specified symptoms and signs involving the circulatory and respiratory systems (principal); I10 Essential (primary) hypertension | CPT/HCPCS: 93880 ==